=== PATIENT | female | born 1945 | race Caucasian/White ===

== ENCOUNTER 2020-06-24 17:50 | Inpatient (IN) | payer MEDICARE, MEDICAID, SELFPAY ==
--- NOTE | 2020-06-24 | XR_ITS ---
EXAMINATION: XR WRIST, LEFT CLINICAL INFORMATION: Fracture COMPARISON: None TECHNIQUE: PA, lateral, and oblique views of the left wrist. FINDINGS: Transverse oriented slightly impacted distal radial metaphyseal fracture seen. I do not appreciate any definitive intra-articular extension on these images. Minimally displaced ulnar styloid fracture noted as well. Degenerative changes in the carpal bones but no additional acute bony abnormality seen within the visualized portion of the hand. Diffuse soft tissue swelling about the wrist. XR/XR wrist LT min 3V IMPRESSION: Impacted distal radial metaphyseal fracture with slight distal dorsal angulation. Minimally displaced ulnar styloid fracture as well.
[2020-06-24 17:56] VITALS: BP 124/65; PULSE 73; RESP 16; TEMP 36.6; O2SAT 94; BMI 24.1
[2020-06-24 18:01] LABS: Glucose, Whole Blood 116 mg/dL (60-115)
--- NOTE | 2020-06-24 18:30 | ECG_ITS ---
Test Reason : FALL Blood Pressure : / mmHG Vent. Rate : 074 BPM Atrial Rate : 074 BPM P-R Int : 138 ms QRS Dur : 102 ms QT Int : 412 ms P-R-T Axes : 075 005 071 degrees QTc Int : 457 ms Sinus rhythm with occasional Premature ventricular complexes Nonspecific ST abnormality Abnormal ECG No previous ECGs available Referred By: Nito Arce Electronically Signed By:KATELIN PAULINO
[2020-06-24 18:47] VITALS: BP 128/58; PULSE 75; RESP 20; TEMP 36.8; O2SAT 96
[2020-06-24 18:51] LABS: Basophils Percent Auto 0.1 % (0-2); Eosinophils Percent Auto 0.1 % (0-4); Imm Gran Abs Auto 0.05 X10*3/uL (0.00-0.03); MANUAL DIFF FLAG SCAN; Mean Corpuscular Volume 86.5 fL (80-98); SCAN SMEAR FLAG 1
[2020-06-24] MEDS: Magnesium Sulfate/H2O 2 GM/50 ML PIGGYBACK IV (18:53)
[2020-06-24] MEDS: methylPREDNISolone Sod Succ/PF 125 MG/2 ML VIAL IVPUSH (18:53)
[2020-06-24] MEDS: 0.9 % Sodium Chloride 1,000 ML 999 ML IV (18:54)
[2020-06-24 18:55] LABS: Hematocrit 39.6 % (37-47); Hemoglobin 13.1 g/dl (12.0-16.0); Imm Gran Pct Auto 0.6 % (0.0-0.4); Lymphocytes Absolute Auto 1.7 X10*3/uL (1.2-4.9); Lymphocytes Percent Auto 22.2 % (20-40); Mean Corpuscular HGB Conc 33.1 g/dl (31.0-35.0); Mean Corpuscular Hemoglobin 28.6 pg (27.0-33.0); Mean Platelet Volume 9.9 fL (9.4-12.3); Monocytes Percent Auto 12.3 % (2-11); Neutrophils Percent Auto 64.7 % (45-73); Platelet Count 277 X10*3/uL (160-400); Red Blood Count 4.58 X10*6/uL (4.20-5.50); Red Cell Distribution Width 13.3 % (11.0-16.0); White Blood Count 7.7 X10*3/uL (4.8-10.8)
--- NOTE | 2020-06-24 18:55 | ED.FALL ---
HPI - Fall General Chief Complaint: Fall Stated Complaint: WRIST/HIP PAIN S/P FALL ON WEDNESDAY Time Seen by Provider: 06/24/20 18:11 Source: patient Mode of arrival: ambulatory Limitations: no limitations History of Present Illness HPI Narrative: Patient presents to the ED for evaluation after fall. Patient states she felt dizzy then fell 2 days ago. Patient admits to loss of consciousness. Patient states complaining of left wrist pain. Patient states she did have left hip pain but now is better. Patient does states left flank pain also. As per EMS patient is not compliant with her medications. Patient O2 saturation on ambulance was 87%. Patient states she has history of COPD but is not on any oxygen. MD complaint: fall Related Data Home Medications Medication Instructions Recorded Confirmed albuterol sulfate [Ventolin HFA] 1 inh INHALATION QID PRN 06/24/20 06/24/20 budesonide-formoterol [Symbicort] 2 puff INHALATION BID 06/24/20 06/24/20 metformin 1 tab PO BID 06/24/20 06/24/20 Allergies Allergy/AdvReac Type Severity Reaction Status Date / Time No Known Allergies Allergy Verified 06/24/20 18:03 Review of Systems Review of Systems: Yes all other systems are reviewed and are negative Constitutional: Constitutional: Reports as per HPI and Reports no additional constitutional complaints Eyes: Eyes: Reports as per HPI and Reports no additional eye complaints ENT: Reports system reviewed and no additional complaints, except as documented and Reports as per HPI Cardiovascular: Cardiovascular: Reports as per HPI and Reports no additional cardiovascular complaints Respiratory: Respiratory: Reports as per HPI and Reports no additional respiratory complaints Gastrointestinal: Gastrointestinal: Reports as per HPI and Reports no additional gastrointestinal complaints Genitourinary: Genitourinary: Reports no additional female genitourinary complaints and Reports as per HPI Musculoskeletal: Musculoskeletal: Reports no additional musculoskeletal complaints and Reports as per HPI Comments: Left hip, left upper extremity, and left flank pain Neurologic: Reports system reviewed and no additional complaints, except as documented and Reports as per HPI Psychiatric: Psychiatric: Reports no additional psychiatric complaints and Reports as per HPI [facility] Social History Social History Alcohol intake: unknown Smoking Status: Unknown if ever smoked Use of substances other than those prescribed or required for medical reasons: Unknown Advance Directives: No Advance Directives Information Provided: No Physical Exam Vital Signs: Vital Signs: Last Vital Signs Temp 97.6 F 06/24/20 19:27 Pulse 66 06/24/20 22:12 Resp 24 H 06/24/20 22:12 BP 150/81 H 06/24/20 22:12 Pulse Ox 97 06/24/20 22:12 Body Mass Index 24.1 Const: General: cooperative, healthy appearing, comfortable, no acute distress, well developed, alert, awake and Physically active Orientation/consciousness: patient oriented x3 HENMT: Head: Yes normal to inspection, Yes No palpable skull fracture present, Yes normocephalic, Yes atraumatic, No abrasion, No Acosta's sign, No contusion, No cranial bruits, No hematoma, No laceration, No occipital foramen tenderness, No palpable skull fracture, No raccoon eyes, No scalp lesion, No scalp tenderness, No Temporal artery tenderness present and No periorbital ecchymosis Eyes: General: appearance normal, both eyes and all related structures Neck: Neck: Yes normal visual inspection, Yes full ROM, Yes no lymphadenopathy, Yes no meningeal signs, Yes trachea midline, Yes supple and No tender Chest: Chest palpation & inspection: normal inspection of the chest and normal palpation of entire chest wall Resp: Effort & Inspection: normal respiratory effort and able to speak in complete sentences Cardio: Jugular venous distension: no JVD Heart sounds: S1 normal heart sound present and S2 normal heart sound present GI: Palpation (GI): Soft to palpation, not firm, nontender, no guarding and not rigid : General: Yes CVA tenderness (Positive for left flank tenderness on palpation) Back/Spine/Pelvis: Back: CVA tenderness (Positive for left flank tenderness on palpation) Skin: Other: Ecchymosis of left wrist Neuro: General: patient oriented x3, gait normal, no meningeal signs and CN's II-XI intact bilaterally Extrem: Other: Patient has complete range of motion of lower extremities. Left arm positive for ecchymosis of left wrist. Pulses intact in left upper extremity. Psych: Appearance: grossly normal, well kempt and not disheveled Course Course Course Narrative: Patient will be sent for head CT, C-spine, chest CT, abdominal CT due to fall. Patient O2 saturation on 2 L 94%. Will do labs/medical evaluation for possible COPD exacerbation. As stated by EMS patient is not compliant with her medications. Patient lives with roommates with the same age. Patient also be swabbed for COVID Reevaluation(s) Reevaluation #1: Patient wrist x-ray show impacted radial fracture. Patient will be placed in sugar-tong. Awaiting rest of labs. Patient is sent for imaging to rule out any brain bleed, neck fracture, PE or any abdominal organ damage due to fall. Time: 19:50 Reevaluation #2: PATIENT TO BE ADMITTED FOR COPD EXACERBATION AND UTI. PATIENT ON ROOM AIR IN THE EMS HAD 86% O2 SATURATION. PATIENT STATES SHE HAS NEVER BEEN ON OXYGEN. PATIENT IN THE ED ROOM AIR WAS 86% ALSO ON ROOM AIR. PATIENT ON 2 L O2 SATURATION 97%. PATIENT'S COVID TEST CAME BACK NEGATIVE. PATIENT CHEST CTa NEGATIVE FOR PE AND REST IMAGES WERE NEGATIVE FOR ANY FRACTURES OR BLEED. Patient also has mild UTI. Time: 00:40 MDM - Fall MDM Narrative Medical decision making narrative: COPD exacerbation. Lab Data Result diagrams: 06/24/20 18:43 06/24/20 18:43 Labs: Lab Results 06/24/20 06/24/20 06/24/20 Range/Units 17:57 18:39 18:43 WBC 7.7 (4.8-10.8) X10*3/uL RBC 4.58 (4.20-5.50) X10*6/uL Hgb 13.1 (12.0-16.0) g/dl Hct 39.6 (37-47) % MCV 86.5 (80-98) fL MCH 28.6 (27.0-33.0) pg MCHC 33.1 (31.0-35.0) g/dl RDW 13.3 (11.0-16.0) % Plt Count 277 (160-400) X10*3/uL MPV 9.9 (9.4-12.3) fL Immature Gran % (Auto) 0.6 H (0.0-0.4) % Neut % (Auto) 64.7 (45-73) % Lymph % (Auto) 22.2 (20-40) % [place] % (Auto) 12.3 H (2-11) % Eos % (Auto) 0.1 (0-4) % Baso % (Auto) 0.1 (0-2) % Lymph # (Auto) 1.7 (1.2-4.9) X10*3/uL [place] # (Auto) 1.0 (0.1-1.2) X10*3/uL Eos # (Auto) 0.0 (0.0-0.4) X10*3/uL Baso # (Auto) 0.0 (0.0-0.2) X10*3/uL Abs Immat Gran (auto) 0.05 H (0.00-0.03) X10*3/uL Absolute Neuts (auto) 5.0 (2.0-8.3) X10*3/uL Absolute Nucleated RBC 0.000 (0.0-0.012) X10*3/uL Nucleated RBC % (auto) 0.0 (0.0-0.2) /100WBC Smear Tech's Comments VERIFIED PT (10.8-13.0) SEC INR (0.9-1.1) APTT (24.1-38.0) SEC Sodium (135-145) mmol/L Potassium (3.3-5.1) mmol/l Chloride (96-108) mmol/L Carbon Dioxide (22-29) mmol/L Anion Gap (12-20) BUN (9-16) mg/dL Creatinine (0.5-1.4) mg/dL Estim Creat Clear Calc Estimated GFR POC Glucose 116 H (60-115) mg/dL Random Glucose (60-115) mg/dL Lactic Acid (0.5-2.0) mmol/L Calcium (8.4-10.2) mg/dL Total Bilirubin (0.0-1.0) mg/dL AST (5-31) U/L ALT (0-31) U/L Alkaline Phosphatase (39-117) U/L Troponin I High Sens (<3.5-17.0) ng/L Total Protein (6.5-8.0) g/dL Albumin (3.5-5.0) g/dL Urine Color Urine Appearance Urine pH (5.0-8.0) Ur Specific [place] (1.005-1.025) Urine Protein (NEG-TRACE) MG/DL Urine Glucose (UA) (NEG) MG/DL Urine Ketones (NEG) MG/DL Urine Blood (NEG) Urine Nitrite (NEG) Ur Leukocyte Esterase (NEG) Urine RBC (0) /HPF Urine WBC (0-4) /HPF Ur Squamous Epith Cells /LPF Urine Bacteria /LPF Urine Mucus /LPF Coronavirus (PCR) NEGATIVE (Negative) Influenza Type A (PCR) NEGATIVE (Negative) Influenza Type B (PCR) NEGATIVE (Negative) RSV RNA Qual (PCR) NEGATIVE (Negative) 06/24/20 06/24/20 06/24/20 Range/Units 18:43 18:43 18:43 WBC (4.8-10.8) X10*3/uL RBC (4.20-5.50) X10*6/uL Hgb (12.0-16.0) g/dl Hct (37-47) % MCV (80-98) fL MCH (27.0-33.0) pg MCHC (31.0-35.0) g/dl RDW (11.0-16.0) % Plt Count (160-400) X10*3/uL MPV (9.4-12.3) fL Immature Gran % (Auto) (0.0-0.4) % Neut % (Auto) (45-73) % Lymph % (Auto) (20-40) % [place] % (Auto) (2-11) % Eos % (Auto) (0-4) % Baso % (Auto) (0-2) % Lymph # (Auto) (1.2-4.9) X10*3/uL [place] # (Auto) (0.1-1.2) X10*3/uL Eos # (Auto) (0.0-0.4) X10*3/uL Baso # (Auto) (0.0-0.2) X10*3/uL Abs Immat Gran (auto) (0.00-0.03) X10*3/uL Absolute Neuts (auto) (2.0-8.3) X10*3/uL Absolute Nucleated RBC (0.0-0.012) X10*3/uL Nucleated RBC % (auto) (0.0-0.2) /100WBC Smear Tech's Comments PT 14.3 H (10.8-13.0) SEC INR 1.2 H (0.9-1.1) APTT 29.9 (24.1-38.0) SEC Sodium 136 (135-145) mmol/L Potassium 3.8 (3.3-5.1) mmol/l Chloride 99 (96-108) mmol/L Carbon Dioxide 23 (22-29) mmol/L Anion Gap 18 (12-20) BUN 12 (9-16) mg/dL Creatinine 0.76 (0.5-1.4) mg/dL Estim Creat Clear Calc 51.5 Estimated GFR > 60 POC Glucose (60-115) mg/dL Random Glucose 115 (60-115) mg/dL Lactic Acid (0.5-2.0) mmol/L Calcium 8.4 (8.4-10.2) mg/dL Total Bilirubin 0.6 (0.0-1.0) mg/dL AST 25 (5-31) U/L ALT 10 (0-31) U/L Alkaline Phosphatase 75 (39-117) U/L Troponin I High Sens 45.7 H (<3.5-17.0) ng/L Total Protein 6.8 (6.5-8.0) g/dL Albumin 3.6 (3.5-5.0) g/dL Urine Color Urine Appearance Urine pH (5.0-8.0) Ur Specific [place] (1.005-1.025) Urine Protein (NEG-TRACE) MG/DL Urine Glucose (UA) (NEG) MG/DL Urine Ketones (NEG) MG/DL Urine Blood (NEG) Urine Nitrite (NEG) Ur Leukocyte Esterase (NEG) Urine RBC (0) /HPF Urine WBC (0-4) /HPF Ur Squamous Epith Cells /LPF Urine Bacteria /LPF Urine Mucus /LPF Coronavirus (PCR) (Negative) Influenza Type A (PCR) (Negative) Influenza Type B (PCR) (Negative) RSV RNA Qual (PCR) (Negative) 06/24/20 06/24/20 06/24/20 Range/Units 19:20 22:18 22:18 WBC (4.8-10.8) X10*3/uL RBC (4.20-5.50) X10*6/uL Hgb (12.0-16.0) g/dl Hct (37-47) % MCV (80-98) fL MCH (27.0-33.0) pg MCHC (31.0-35.0) g/dl RDW (11.0-16.0) % Plt Count (160-400) X10*3/uL MPV (9.4-12.3) fL Immature Gran % (Auto) (0.0-0.4) % Neut % (Auto) (45-73) % Lymph % (Auto) (20-40) % [place] % (Auto) (2-11) % Eos % (Auto) (0-4) % Baso % (Auto) (0-2) % Lymph # (Auto) (1.2-4.9) X10*3/uL [place] # (Auto) (0.1-1.2) X10*3/uL Eos # (Auto) (0.0-0.4) X10*3/uL Baso # (Auto) (0.0-0.2) X10*3/uL Abs Immat Gran (auto) (0.00-0.03) X10*3/uL Absolute Neuts (auto) (2.0-8.3) X10*3/uL Absolute Nucleated RBC (0.0-0.012) X10*3/uL Nucleated RBC % (auto) (0.0-0.2) /100WBC Smear Tech's Comments PT (10.8-13.0) SEC INR (0.9-1.1) APTT (24.1-38.0) SEC Sodium (135-145) mmol/L Potassium (3.3-5.1) mmol/l Chloride (96-108) mmol/L Carbon Dioxide (22-29) mmol/L Anion Gap (12-20) BUN (9-16) mg/dL Creatinine (0.5-1.4) mg/dL Estim Creat Clear Calc Estimated GFR POC Glucose (60-115) mg/dL Random Glucose (60-115) mg/dL Lactic Acid 0.9 (0.5-2.0) mmol/L Calcium (8.4-10.2) mg/dL Total Bilirubin (0.0-1.0) mg/dL AST (5-31) U/L ALT (0-31) U/L Alkaline Phosphatase (39-117) U/L Troponin I High Sens 50.4 H (<3.5-17.0) ng/L Total Protein (6.5-8.0) g/dL Albumin (3.5-5.0) g/dL Urine Color YELLOW Urine Appearance HAZY Urine pH 6.0 (5.0-8.0) Ur Specific [place] 1.010 (1.005-1.025) Urine Protein NEG (NEG-TRACE) MG/DL Urine Glucose (UA) NEG (NEG) MG/DL Urine Ketones 40 (NEG) MG/DL Urine Blood TRACE (NEG) Urine Nitrite POS H (NEG) Ur Leukocyte Esterase NEG (NEG) Urine RBC 1-4 (0) /HPF Urine WBC 1-4 (0-4) /HPF Ur Squamous Epith Cells 1+ /LPF Urine Bacteria 3+ /LPF Urine Mucus 1+ /LPF Coronavirus (PCR) (Negative) Influenza Type A (PCR) (Negative) Influenza Type B (PCR) (Negative) RSV RNA Qual (PCR) (Negative) ECG Data Interpretation: Sinus rhythm with PVC. Ventricular rate 74. LA interval 138. QRS 102. Negative STEMI Discharge Plan Discharge Clinical Impression: Chronic obstructive pulmonary disease with (acute) exacerbation, Acute UTI Patient Disposition: Admitted As Inpatient
[2020-06-24 18:59] LABS: INTERNATIONAL NORM RATIO 1.2 (0.9-1.1); Prothrombin Time 14.3 SEC (10.8-13.0)
[2020-06-24] MEDS: Albuterol Sulfate 90 MCG 8 GM INHALER 4 PUFF INHALE (18:59)
[2020-06-24 19:00] VITALS: PULSE 70; O2SAT 94
[2020-06-24 19:02] LABS: Partial Thromboplastin Time 29.9 SEC (24.1-38.0)
[2020-06-24 19:11] LABS: SLIDE REVIEW VERIFIED
[2020-06-24 19:19] LABS: Alanine Aminotransferase 10 U/L (0-31); Albumin Level 3.6 g/dL (3.5-5.0); Alkaline Phosphatase 75 U/L (39-117); Anion Gap 18 (12-20); Aspartate Amino Transferase 25 U/L (5-31); Bilirubin Total 0.6 mg/dL (0.0-1.0); Blood Urea Nitrogen 12 mg/dL (9-16); Calcium 8.4 mg/dL (8.4-10.2); Carbon Dioxide 23 mmol/L (22-29); Chloride 99 mmol/L (96-108); Creatinine Clr Calc Pharmacy 51.5; Estimated Glomerular Filt Rate > 60; Glucose Random 115 mg/dL (60-115); Potassium 3.8 mmol/l (3.3-5.1); Sodium 136 mmol/L (135-145); Total Protein 6.8 g/dL (6.5-8.0)
--- NOTE | 2020-06-24 19:26 | CT_ITS ---
EXAMINATION: CT ANGIOGRAM OF THE CHEST WITH AND WITHOUT CONTRAST (CT PULMONARY ANGIOGRAM FOR PE) CLINICAL INFORMATION: Reason for Exam fall. dizzy and hypoxic. fractures? PE? COMPARISON: None TECHNIQUE: Prior to contrast administration, noncontrast localization images were obtained. Subsequently, multidetector volumetric imaging was performed from the thoracic inlet to below the diaphragms following the administration of 80 mL Omnipaque 350 intravenous contrast. No contrast reaction reported Sagittal, coronal, and MIP oblique sagittal reformatted images were obtained on the CT workstation, uploaded to PACS, and reviewed. This CT examination was performed using dose optimization techniques as appropriate, variously including the following: *Automated exposure control *Adjustment of mA and/or kV according to patient size (this includes techniques or standardized protocols for targeted exams where dose is matched to indication/reason for exam; i.e. extremities or head) *Use of iterative reconstruction technique Total exam dose-length product 543 mGy-cm FINDINGS: QUALITY OF STUDY/CONTRAST BOLUS: Satisfactory. PULMONARY ARTERIES: No central or segmental pulmonary emboli. THORACIC AORTA: No aneurysm or dissection. LUNG: Severe emphysematous changes are present throughout the lungs most marked in the upper lobes. Bronchial wall thickening is noted in both lower lobes with some calcifications seen around the bronchial schaeffer especially in the right lower lobe (for example see series 31 image 253). A right lower lobe calcified granuloma is present. Bilateral lower lobe scarring/atelectasis is seen. PLEURA: No pleural effusion or pneumothorax. MEDIASTINUM: Normal heart size. No pericardial effusion. No hilar or mediastinal lymphadenopathy. No evidence of septal bowing or right heart strain. Disease is noted at the origin of the left subclavian as well as the left vertebral artery which may have stenoses. CHEST WALL/AXILLA: No axillary or internal mammary lymphadenopathy. OSSEOUS STRUCTURES: No acute or suspicious osseous abnormality. UPPER ABDOMEN: Unremarkable. No reflux of contrast into the hepatic veins to suggest elevated right heart pressures. CT/CT angio chest PE protocol IMPRESSION: 1. No evidence of pulmonary emboli 2. Severe emphysematous changes throughout both lungs. 3. Bronchial wall thickening lower lobes with some bronchial wall calcification and associated bilateral lower lobe scarring/atelectasis. 4. Atherosclerotic changes as described above with possible left vertebral and left subclavian stenosis. VTE: negative
--- NOTE | 2020-06-24 19:26 | CT_ITS ---
EXAMINATION: CT ABDOMEN AND PELVIS WITH CONTRAST CLINICAL INFORMATION: Fall with question of organ injury or fracture COMPARISON: None TECHNIQUE: Multidetector volumetric images were obtained from the superior aspect of the liver through the pubic symphysis following administration 85 mL of Omnipaque 350 intravenous contrast. Sagittal and coronal reformatted images were obtained on the technologist's workstation. Oral contrast: No This CT examination was performed using dose optimization techniques as appropriate, variously including the following: *Automated exposure control *Adjustment of mA and/or kV according to patient size (this includes techniques or standardized protocols for targeted exams where dose is matched to indication/reason for exam; i.e. extremities or head) *Use of iterative reconstruction technique DLP: 543 mGy-cm FINDINGS: LIVER, GALLBLADDER, AND BILIARY TREE: The liver is normal in size, shape, and attenuation. No focal hepatic lesion or biliary ductal dilatation is present. The gallbladder is unremarkable with no evidence of radiopaque gallstones, gallbladder wall thickening, or obvious pericholecystic inflammatory changes. PANCREAS: Unremarkable. SPLEEN: A subcapsular hyperattenuating mass is present arising from the superior spleen measuring 3.6 cm. ADRENAL GLANDS: Unremarkable. KIDNEYS AND URETERS: The kidneys are normal in size, shape, and attenuation. There is mild prominence of the right renal collecting system and radiograph right aorta down to a level where it passes in front of the distal common iliac artery. There is no delay in nephrogram. No renal masses are seen. No hydronephrosis, hydroureter, or calculi seen. No perinephric stranding. BLADDER: Unremarkable. GASTROINTESTINAL TRACT: The small and large bowel are unremarkable. There is fatty infiltration of the ileocecal valve. The appendix is unremarkable. ABDOMINAL WALL: No significant hernia is appreciated. LYMPH NODES: No retroperitoneal lymphadenopathy is seen. Small left para-aortic lymph node is seen at the level of the renal farshad. VASCULAR: Atherosclerotic changes present in the aorta and iliofemoral vessels. There is some mild infrarenal aortic ectasia measuring 2.5 cm. 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 PELVIC VISCERA: Status post hysterectomy OSSEOUS STRUCTURES: Degenerative changes present in the spine most marked at L4-L5 and L5-S1. There is grade 1 anterolisthesis of L4 upon L5 and to a lesser extent at L3 upon L4. No hip or pelvic fractures are seen on the included images. CT/CT abdomen pelvis w con IMPRESSION: 1. No evidence of visceral organ injury or fracture. 2. Incidental findings described above including mild fullness of the renal collecting system, atherosclerotic changes in the aorta, its branches and iliofemoral vessels. 3. Hysterectomy 4. Degenerative changes in the spine with anterolisthesis at L3-L4 and L4-L5 5. Splenic mass. If needed, further evaluation could be performed with MRI. If older studies are available for comparison, this could be helpful.
--- NOTE | 2020-06-24 19:26 | CT_ITS ---
EXAMINATION: CT HEAD WITHOUT CONTRAST CT CERVICAL SPINE WITHOUT CONTRAST CLINICAL INFORMATION: Fall COMPARISON: None. TECHNIQUE: Imaging was performed from the skull base to vertex without intravenous administration of contrast. In addition, helical noncontrast CT imaging was acquired through the cervical spine and source images were reviewed along with axial reconstructions and sagittal and coronal MPRs. [This CT examination was performed using dose optimization techniques as appropriate, variously including the following: *Automated exposure control *Adjustment of mA and/or kV according to patient size (this includes techniques or standardized protocols for targeted exams where dose is matched to indication/reason for exam; i.e. extremities or head) *Use of iterative reconstruction technique] DLP: 10.25+646.55+262.64 mGy-cm FINDINGS: HEAD: No intracranial mass, hemorrhage, or midline shift is visualized. There is atrophy with prominence of the ventricles and the sulci and hypodensity of the periventricular white matter due to chronic small vessel ischemic disease. There are vascular calcifications of the internal carotid arteries bilaterally. . No extra-axial collections are identified. The paranasal sinuses and mastoid air cells are well aerated. CERVICAL SPINE: There is no evidence of acute cervical spine fracture. Vertebral bodies remain normal in height. Cervical vertebrae have normal alignment. There is multilevel degenerative spondylosis of the cervical spine with disc height narrowing and endplate spurs and facet joint arthrosis No prevertebral soft tissue swelling. There are vascular calcification of the carotid arteries in the soft tissues of the neck bilateral. Mild centrilobular emphysematous change of lung apices. There is advanced degenerative change of the right TMJ joint. Joint space is narrowed. Prominent subchondral sclerosis and marginal bone spurs. There are intra-articular calcified loose bodies CT/CT cervical spine wo con IMPRESSION: 1. No acute intracranial pathology. 2. No CT evidence of acute cervical spine fracture or traumatic subluxation
[2020-06-24 19:27] VITALS: BP 139/53; PULSE 81; RESP 15; TEMP 36.4; O2SAT 96
[2020-06-24 19:34] LABS: Troponin-I High Sensitivity 45.7 ng/L (<3.5-17.0)
[2020-06-24 19:50] LABS: Lactic Acid 0.9 mmol/L (0.5-2.0)
[2020-06-24 20:00] VITALS: BP 123/58; PULSE 70; RESP 24; O2SAT 98
[2020-06-24 20:00] LABS: Influenza A PCR NEGATIVE (Negative); Influenza B PCR NEGATIVE (Negative); Resp Syncy Virus RNA Qual PCR NEGATIVE (Negative); SARS COV2 PCR INHOUSE NEGATIVE (Negative)
[2020-06-24] MEDS: iohexoL 350 MG/ML 100 ML INFUS..BTL IV (21:40)
[2020-06-24 22:12] VITALS: BP 150/81; PULSE 66; RESP 24; O2SAT 97
[2020-06-24 22:31] LABS: Glucose Urine UA NEG (NEG); Leukocyte Esterase Urine NEG (NEG); Nitrite Urine POS (NEG); Urine Blood TRACE (NEG); Urine Ketones 40 MG/DL (NEG); Urine Protein NEG (NEG-TRACE)
[2020-06-24 22:46] LABS: Appearance Urine HAZY; Color Urine YELLOW
[2020-06-24 22:47] LABS: Bacteria Urine 3+ /LPF; Mucus Urine 1+ /LPF; Squamous Epithelial Cell Urine 1+ /LPF
[2020-06-24 23:02] LABS: Troponin-I High Sensitivity 50.4 ng/L (<3.5-17.0)
[2020-06-24] MEDS: cefTRIAXone sodium 1 GM in 0.9 % Sodium Chloride 50 ML IV (23:54)
[2020-06-25] VITALS (12 sets, daily range): BP systolic 115–156; BP diastolic 60–86; PULSE 58–76; RESP 16–28; TEMP 36.4; O2SAT 93–99
[2020-06-25] MEDS: Azithromycin 500 MG in 0.9 % Sodium Chloride 250 ML 125 MG IV (00:45)
[2020-06-25] MEDS: Albuterol/Iprat 2.5/0.5MG 3 ML AMPUL.NEB INHALE ×4 (07:35→20:41)
--- NOTE | 2020-06-25 07:52 | P.HPHOSP_ITS ---
History of Present Illness Date of Service: 06/25/20 Chief Complaint: Fall This is a 75-year-old female with past medical history of diabetes, COPD who presents to the hospital with complaints of fall and hurting her his. Patient has been feeling weak for the past 1 week. Low appetite. She is also complaining of urinary urgency with no dysuria or frequency. Patient is also complaining of increased cough and sputum production with no wheezing. She does not remember much about her fall, she reports that she fell and could not stop herself from falling and rolling. She hurt her wrist and also her left hip. She does not remember if she lost consciousness or not and does not remember any prodromal symptoms. She just remembers being in feeling significantly weak. She otherwise denies headache, change in vision, no nausea or vomiting, no abdominal pain, no suprapubic pain, no lower extremity edema. Apparently patient is satting 86% with ambulation in the ED and also noted by EMS. Currently on 2 L satting 95 sit to 99%. Recorded vitals are significant for tachypnea, but currently breathing comfortably Labs are significant for normal WBC count of 7.7, hemoglobin of 13.1, PT of 14.3, INR of 1.2, sodium of 136, potassium 3.8, high sensitivity troponin of 45 increased to 50.4, UA positive for nitrites, negative COVID-19. CT angiogram of the chest is negative for PE, severe emphysematous changes throughout the lungs. PMHX: COPD, diabetes Past surgical history: Denies Family history: Denies Social history: Comes from home, denies tobacco alcohol or illicit drugs Review of Systems Review of Systems: Yes all other systems are reviewed and are negative Neurologic: Reports system reviewed and no additional complaints, except as documented and Reports as per [facility] Medical History (Updated 06/25/20 @ 08:06 by Aurelio Champion MD) COPD (chronic obstructive pulmonary disease) Diabetes Social History Alcohol intake: unknown Smoking Status: Unknown if ever smoked Use of substances other than those prescribed or required for medical reasons: Unknown Advance Directives: No Advance Directives Information Provided: No Meds Allergies Allergy/AdvReac Type Severity Reaction Status Date / Time No Known Allergies Allergy Verified 06/24/20 18:03 Home Medications Medication Instructions Recorded Confirmed Type albuterol sulfate [Ventolin HFA] 1 inh INHALATION QID PRN 06/24/20 06/24/20 History budesonide-formoterol [Symbicort] 2 puff INHALATION BID 06/24/20 06/24/20 History metformin 1 tab PO BID 06/24/20 06/24/20 History Physical Exam Vital Signs and Narrative: Vital Signs: Last Vital Signs Temp 97.6 F 06/24/20 19:27 Pulse 66 06/25/20 07:37 Resp 16 06/25/20 06:00 BP 144/65 H 06/25/20 06:00 Pulse Ox 99 06/25/20 06:00 Body Mass Index 24.1 Const: General: cooperative and no acute distress Orientation /consciousness: patient oriented x3 Eyes: General: appearance normal, both eyes and all related structures Resp: Effort & Inspection: normal respiratory effort and able to speak in complete sentences Cardio: Rate: regular rate Rhythm: regular rhythm GI: Palpation (GI): Soft to palpation Auscultation: normal bowel sounds Skin: General skin exam: no rashes or lesions noted Neuro: General: patient oriented x3 Cognition (Neuro): normal cognition Extrem: General: Yes normal to inspection and Yes no pedal edema Results Labs CBC and Chem 7: 06/24/20 18:43 06/24/20 18:43 Labs: Laboratory Results - last 24 hr 06/24/20 06/24/20 06/24/20 17:57 18:39 18:43 MCV 86.5 MCH 28.6 MCHC 33.1 RDW 13.3 Plt Count 277 MPV 9.9 Immature Gran % (Auto) 0.6 H Neut % (Auto) 64.7 Lymph % (Auto) 22.2 Jefferson % (Auto) 12.3 H Eos % (Auto) 0.1 Baso % (Auto) 0.1 Lymph # (Auto) 1.7 Jefferson # (Auto) 1.0 Eos # (Auto) 0.0 Baso # (Auto) 0.0 Abs Immat Gran (auto) 0.05 H Absolute Neuts (auto) 5.0 Absolute Nucleated RBC 0.000 Nucleated RBC % (auto) 0.0 Smear Tech's Comments VERIFIED PT INR APTT Anion Gap Estim Creat Clear Calc Estimated GFR POC Glucose 116 H Random Glucose Lactic Acid Calcium Total Bilirubin AST ALT Alkaline Phosphatase Troponin I High Sens Total Protein Albumin Urine Color Urine Appearance Urine pH Ur Specific [place] Urine Protein Urine Glucose (UA) Urine Ketones Urine Blood Urine Nitrite Ur Leukocyte Esterase Urine RBC Urine WBC Ur Squamous Epith Cells Urine Bacteria Urine Mucus Coronavirus (PCR) NEGATIVE Influenza Type A (PCR) NEGATIVE Influenza Type B (PCR) NEGATIVE RSV RNA Qual (PCR) NEGATIVE 06/24/20 06/24/20 06/24/20 18:43 18:43 18:43 MCV MCH MCHC RDW Plt Count MPV Immature Gran % (Auto) Neut % (Auto) Lymph % (Auto) Jefferson % (Auto) Eos % (Auto) Baso % (Auto) Lymph # (Auto) Jefferson # (Auto) Eos # (Auto) Baso # (Auto) Abs Immat Gran (auto) Absolute Neuts (auto) Absolute Nucleated RBC Nucleated RBC % (auto) Smear Tech's Comments PT 14.3 H INR 1.2 H APTT 29.9 Anion Gap 18 Estim Creat Clear Calc 51.5 Estimated GFR > 60 POC Glucose Random Glucose 115 Lactic Acid Calcium 8.4 Total Bilirubin 0.6 AST 25 ALT 10 Alkaline Phosphatase 75 Troponin I High Sens 45.7 H Total Protein 6.8 Albumin 3.6 Urine Color Urine Appearance Urine pH Ur Specific [place] Urine Protein Urine Glucose (UA) Urine Ketones Urine Blood Urine Nitrite Ur Leukocyte Esterase Urine RBC Urine WBC Ur Squamous Epith Cells Urine Bacteria Urine Mucus Coronavirus (PCR) Influenza Type A (PCR) Influenza Type B (PCR) RSV RNA Qual (PCR) 06/24/20 06/24/20 06/24/20 19:20 22:18 22:18 MCV MCH MCHC RDW Plt Count MPV Immature Gran % (Auto) Neut % (Auto) Lymph % (Auto) Jefferson % (Auto) Eos % (Auto) Baso % (Auto) Lymph # (Auto) Jefferson # (Auto) Eos # (Auto) Baso # (Auto) Abs Immat Gran (auto) Absolute Neuts (auto) Absolute Nucleated RBC Nucleated RBC % (auto) Smear Tech's Comments PT INR APTT Anion Gap Estim Creat Clear Calc Estimated GFR POC Glucose Random Glucose Lactic Acid 0.9 Calcium Total Bilirubin AST ALT Alkaline Phosphatase Troponin I High Sens 50.4 H Total Protein Albumin Urine Color YELLOW Urine Appearance HAZY Urine pH 6.0 Ur Specific [place] 1.010 Urine Protein NEG Urine Glucose (UA) NEG Urine Ketones 40 Urine Blood TRACE Urine Nitrite POS H Ur Leukocyte Esterase NEG Urine RBC 1-4 Urine WBC 1-4 Ur Squamous Epith Cells 1+ Urine Bacteria 3+ Urine Mucus 1+ Coronavirus (PCR) Influenza Type A (PCR) Influenza Type B (PCR) RSV RNA Qual (PCR) Imaging Radiologist's Impressions: Impressions Wrist X-Ray 06/24/20 00:00 IMPRESSION: Impacted distal radial metaphyseal fracture with slight distal dorsal angulation. Minimally displaced ulnar styloid fracture as well. Abdomen/Pelvis CT 06/24/20 19:26 IMPRESSION: 1. No evidence of visceral organ injury or fracture. 2. Incidental findings described above including mild fullness of the renal collecting system, atherosclerotic changes in the aorta, its branches and iliofemoral vessels. 3. Hysterectomy 4. Degenerative changes in the spine with anterolisthesis at L3-L4 and L4-L5 5. Splenic mass. If needed, further evaluation could be performed with MRI. If older studies are available for comparison, this could be helpful. Cervical Spine CT 06/24/20 19:26 IMPRESSION: 1. No acute intracranial pathology. 2. No CT evidence of acute cervical spine fracture or traumatic subluxation Chest CTA 06/24/20 19:26 IMPRESSION: 1. No evidence of pulmonary emboli 2. Severe emphysematous changes throughout both lungs. 3. Bronchial wall thickening lower lobes with some bronchial wall calcification and associated bilateral lower lobe scarring/atelectasis. 4. Atherosclerotic changes as described above with possible left vertebral and left subclavian stenosis. VTE: negative Head CT 06/24/20 19:26 IMPRESSION: 1. No acute intracranial pathology. 2. No CT evidence of acute cervical spine fracture or traumatic subluxation Assessment and Plan (1) Chronic obstructive pulmonary disease with (acute) exacerbation: Status: Acute (2) Acute UTI: Status: Acute (3) Falls: Qualifiers: Encounter type: initial encounter Qualified Code(s): W19.XXXA - Unspecified fall, initial encounter Status: Acute (4) Acute and chronic respiratory failure with hypoxia: Status: Acute 75-year-old female with past medical history of COPD who presents to the hospital with complaints of falls found to have UTI as well as hypoxic on ambulation # acute hypoxic respiratory failure - secondary to COPD exacerbation - has no evidence of pneumonia, COVID-19 PCR negative - reported to have dropped to 86% on ambulation per EMS as well as ED Plan: -will start on Solu-Medrol 40 IV b.i.d. - DuoNeb q.i.d. scheduled and p.r.n. for shortness of breath/wheezing - monitor respiratory status # UTI - has urgency, nitrates and UA - no evidence of sepsis, has no leukocytosis, afebrile Plan: - will start on ceftriaxone - follow urine cultures # Falls - possibly secondary to weakness, no acute UTI - patient reports poor oral intake for 1 week - will start treating her UTI - consult physical therapy for evaluation DVT prophylaxis: Lovenox
[2020-06-25] MEDS: Enoxaparin Sodium 40 MG/0.4 ML SYRINGE SUBCUT (08:46)
[2020-06-25 08:53] LABS: Glucose, Whole Blood 172 mg/dL (60-115)
[2020-06-25] MEDS: Insulin Lispro 100 UNIT/ML 3 ML VIAL SUBCUT ×2 (08:53→20:36)
--- NOTE | 2020-06-25 11:19 | MHC.CM.PN ---
Met with patient in regards to discharge planning. Patient lives with her sig other, Jg, has a cane for mobility and receives housekeeping services twice a week. PCP verified. Obs notice explained and signed. Physical therapy eval complete. Acute rehab is recommended. Occupational therapy eval is pending. Spoke about rehab options with patient. Patient is denying the need for rehab and wants to go home. Patient states sig other, Jg will be able to help her with all of her ADL's. Spoke with patient's son, Abdi via telephone at [phone]. Patient moved from [place] to [facility] about 3 years ago. Abdi will provide a copy of patient's POA to t/w via fax. Abdi is concerned about patient going home and not to rehab. Reached out to patient's sig other, Jg via telephone at [phone]. Left message requesting return telephone call. Continue to monitor for d/c needs.
[2020-06-25 12:54] LABS: Glucose, Whole Blood 174 mg/dL (60-115)
--- NOTE | 2020-06-25 14:05 | PC.NURSE ---
PT WAS PROVIDED LUNCH TRAY, ASSISTED IN SETTING HER UP ADJUSTED HER SLING LYNNETTE WICK SUCTION CONTAINER EMPTIED OF 400ML URINE
--- NOTE | 2020-06-25 14:31 | MHC.CM.PN ---
Copy of HCP was provided via fax from patient's son Abdi. Received telephone call from patient's sig other, Jg. He is unable to assist the patient at home. He just got out of the hospital himself. Anticipate patient will need rehab. [facility] is waiting for OT eval so they can obtain insurance auth. Continue to monitor for d/c needs.
[2020-06-25 18:11] LABS: Glucose, Whole Blood 169 mg/dL (60-115)
[2020-06-25 20:28] LABS: Glucose, Whole Blood 219 mg/dL (60-115)
[2020-06-25] MEDS: cefTRIAXone sodium 1 GM in 0.9 % Sodium Chloride 50 ML IV (20:35)
[2020-06-26] VITALS (8 sets, daily range): BP systolic 124–148; BP diastolic 65–72; PULSE 66–79; RESP 16–28; TEMP 36.4–36.9; O2SAT 91–94
[2020-06-26 05:23] LABS: Basophils Percent Auto 0.1 % (0-2); Hematocrit 35.9 % (37-47); Imm Gran Abs Auto 0.06 X10*3/uL (0.00-0.03); Imm Gran Pct Auto 0.6 % (0.0-0.4); Lymphocytes Absolute Auto 1.8 X10*3/uL (1.2-4.9); Lymphocytes Percent Auto 16.6 % (20-40); MANUAL DIFF FLAG SCAN; Mean Corpuscular HGB Conc 33.4 g/dl (31.0-35.0); Mean Corpuscular Hemoglobin 28.6 pg (27.0-33.0); Mean Corpuscular Volume 85.7 fL (80-98); Monocytes Absolute Auto 1.1 X10*3/uL (0.1-1.2); Monocytes Percent Auto 10.2 % (2-11); Neutrophils Absolute Auto 7.7 X10*3/uL (2.0-8.3); Neutrophils Percent Auto 72.5 % (45-73); Platelet Count 323 X10*3/uL (160-400); Red Blood Count 4.19 X10*6/uL (4.20-5.50); Red Cell Distribution Width 13.1 % (11.0-16.0); SCAN SMEAR FLAG 1; White Blood Count 10.6 X10*3/uL (4.8-10.8)
[2020-06-26 05:43] LABS: SLIDE REVIEW VERIFIED
[2020-06-26 05:44] LABS: Anion Gap 12 (12-20); Blood Urea Nitrogen 11 mg/dL (9-16); Calcium 8.2 mg/dL (8.4-10.2); Carbon Dioxide 27 mmol/L (22-29); Chloride 104 mmol/L (96-108); Creatinine Clr Calc Pharmacy 59.3; Estimated Glomerular Filt Rate > 60; Glucose Random 139 mg/dL (60-115); Potassium 3.5 mmol/l (3.3-5.1); Sodium 139 mmol/L (135-145)
[2020-06-26 06:26] LABS: Glucose, Whole Blood 120 mg/dL (60-115)
--- NOTE | 2020-06-26 06:50 | PC.NURSE ---
received report from lars bowen pt assisted out of bed with assistance into the recliner, pt was incontinent of urine, pt set up with her breakfast yanet pt given Tylenol for pain by lars Bowen pt awaiting room assignment
[2020-06-26] MEDS: Enoxaparin Sodium 40 MG/0.4 ML SYRINGE SUBCUT (06:51)
[2020-06-26] MEDS: Acetaminophen 325 MG TABLET 650 MG PO (06:53)
[2020-06-26] MEDS: Albuterol/Iprat 2.5/0.5MG 3 ML AMPUL.NEB INHALE ×3 (07:58→15:21)
--- NOTE | 2020-06-26 08:30 | PC.NURSE ---
called crys peng to give report awaiting for a call back
--- NOTE | 2020-06-26 08:52 | MHC.CM.PN ---
[facility] has submitted for insurance auth with [employer]. They are requesting repeat Covid and verification patient will not need surgery. Dr Maurer has ordered ortho consult. However, it has not been done yet. Repeat Covid has been ordered. Continue to monitor for d/c needs.
[2020-06-26] MEDS: predniSONE 20 MG TABLET 40 MG PO (09:11)
--- NOTE | 2020-06-26 09:13 | PC.NURSE ---
plan for pt to go to rehab at this time, not admission pt reports no pain at this time
--- NOTE | 2020-06-26 11:26 | PC.NURSE ---
Pt found with o2 off, her sats were 88 on room air. She was placed back on 2 liters with sats increasing to 92%. Orthopedic team at bedside to explain plan of care to pt at this time.
--- NOTE | 2020-06-26 12:00 | PM.EVENT ---
Event Note Date of Service: 06/26/20 Event Note: Patient seen today for left distal radius fracture - she would benefit from ORIF left wrist, this is not an urgent or emergent procedure, can do on an out patient basis early next week
--- NOTE | 2020-06-26 12:34 | P.PNIM_ITS ---
Subjective Subjective Date of Service: 06/26/20 Interval History: fall Cardiovascular Cardiovascular: Reports no additional cardiovascular complaints Respiratory Respiratory: Reports no additional respiratory complaints Physical Exam Vital Signs: Vital Signs: Last Vital Signs Temp 98.4 F 06/26/20 11:23 Pulse 67 06/26/20 11:36 Resp 20 06/26/20 11:23 BP 125/68 06/26/20 11:23 Pulse Ox 92 06/26/20 11:23 Body Mass Index 24.1 General: AO X 3, no acute distress Resp: CTA bilateral CVS: S1,S2,RRR GI: soft, non tender, non distended Neuro: motor grossly intact Psych: appropriate affect Objective Data Current Medications Generic Name Dose Route Start Last Admin Trade Name Freq PRN Reason Stop Dose Admin Acetaminophen 650 mg 06/25/20 06:16 06/26/20 06:53 Acetaminophen 325 Mg Tablet PO 650 mg Q6H PRN Administration Pain, Mild (Pain Scale 1-3) Albuterol/Ipratropium 3 ml 06/25/20 08:00 06/26/20 11:33 Albuterol/Iprat 2.5/0.5mg 3 Ml Ampul.Neb INHALE 3 ml RQ4H WHILE AWAKE NAYELI Administration Albuterol/Ipratropium 3 ml 06/25/20 06:16 Albuterol/Iprat 2.5/0.5mg 3 Ml Ampul.Neb INHALE RQ4H PRN Shortness of Breath/Wheezing Docusate Sodium 100 mg 06/25/20 06:16 Docusate Sodium 100 Mg Capsule PO DAILY PRN Constipation Enoxaparin Sodium 40 mg 06/25/20 06:16 06/26/20 06:51 Enoxaparin Sodium 40 Mg/0.4 Ml Syringe SUBCUT 40 mg Q24H NAYELI Administration Ceftriaxone Sodium 1 gm/ 50 mls @ 100 mls/hr 06/25/20 21:00 06/25/20 21:05 Sodium Chloride IV Infused Q24H NAYELI Infusion Insulin Human Lispro 0 unit 06/25/20 07:30 06/26/20 06:45 Insulin Lispro 100 Unit/Ml 3 Ml Vial SUBCUT Not Given QIDACHS [facility] Protocol Ondansetron HCl 4 mg 06/25/20 06:16 Ondansetron Hcl 4 Mg/2 Ml Vial IVPUSH Q8H PRN Nausea and Vomiting Prednisone 40 mg 06/26/20 09:00 06/26/20 09:11 Prednisone 20 Mg Tablet PO 40 mg DAILY NAYELI Administration Labs CBC & Chem 7: 06/26/20 05:19 06/26/20 05:19 Microbiology Microbiology Results: Microbiology 06/24/20 22:18 Urine clean catch - Clean Catch Midstream Urine Culture - Final Escherichia coli 06/24/20 19:22 Blood - Venous Blood Culture - Preliminary No growth after 24 hours. 06/24/20 19:20 Blood - Venous Blood Culture - Preliminary No growth after 24 hours. Assessment and Plan (1) Chronic obstructive pulmonary disease with (acute) exacerbation: Status: Acute (2) Acute UTI: Status: Acute (3) Falls: Status: Acute (4) Acute and chronic respiratory failure with hypoxia: Status: Acute Assessment and Plan: 75F presented with fall Acute hypoxic respiratory failure secondary to COPD exacerbation Very mild, denies any symptoms, likely has chronic low normal to hypoxic saturations at baseline Changed to p.o. prednisone Bronchodilators as needed Positive UA with pansensitive E coli Questionable symptoms Will treat with ceftriaxone, can change to amoxicillin on discharge Left wrist fracture Ortho appreciated Plan for non urgent ORIF as outpatient Will need rehab [facility]
--- NOTE | 2020-06-26 12:48 | P.CONOP_ITS ---
History of Present Illness HPI Consult date: 06/26/20 Chief complaint: COPD exacerbation Narrative: This is a 75-year-old female with past medical history significant for COPD who presented to the emergency department after sustaining a fall on June 22. When she fell she landed on her wrist. She also had a loss of consciousness. When she was brought to the emergency department she was worked up and x-rays of the left wrist showed a distal radius fracture. She was placed in a splint and Orthopedics was consulted for further recommendations. Review of Systems Neurologic: Reports system reviewed and no additional complaints, except as documented and Reports as per [facility] Past Medical History Medical History (Updated 06/26/20 @ 12:52 by Delroy Humphrey PA-C) COPD (chronic obstructive pulmonary disease) Diabetes Social History Social History Alcohol intake: unknown Smoking Status: Unknown if ever smoked Use of substances other than those prescribed or required for medical reasons: Unknown Advance Directives: No Advance Directives Information Provided: No service: No Current occupational status: retired [email or web address] Allergies Allergy/AdvReac Type Severity Reaction Status Date / Time No Known Allergies Allergy Verified 06/24/20 18:03 Home Medications Medication Instructions Recorded Confirmed Type albuterol sulfate [Ventolin HFA] 1 inh INHALATION QID PRN 06/24/20 06/24/20 History budesonide-formoterol [Symbicort] 2 puff INHALATION BID 06/24/20 06/24/20 History metformin 500 mg PO BID 06/24/20 06/26/20 History Physical Exam Vital Signs: Vital Signs: Last Vital Signs Temp 98.4 F 06/26/20 11:23 Pulse 67 06/26/20 11:36 Resp 20 06/26/20 11:23 BP 125/68 06/26/20 11:23 Pulse Ox 92 06/26/20 11:23 Body Mass Index 24.1 Const: General: cooperative and no acute distress Orientation/consciousness: patient oriented x3 Resp: Effort & Inspection: normal respiratory effort and able to speak in complete sentences Cardio: Peripheral pulses: Peripheral pulses 2+ throughout Neuro: General: patient oriented x3 Extrem: Other: Left wrist splint is intact. She has mobility of her fingers and sensation is intact. Capillary refill present. X-rays of the left wrist show a an impacted distal radius fracture with slight dorsal angulation Results Labs Result Diagrams: 06/26/20 05:19 06/26/20 05:19 Labs: Abnormal lab results 06/25/20 06/25/20 06/25/20 Range/Units 12:50 18:07 20:12 RBC (4.20-5.50) X10*6/uL Hct (37-47) % Immature Gran % (Auto) (0.0-0.4) % Lymph % (Auto) (20-40) % Abs Immat Gran (auto) (0.00-0.03) X10*3/uL POC Glucose 174 H 169 H 219 H (60-115) mg/dL Random Glucose (60-115) mg/dL Calcium (8.4-10.2) mg/dL 06/26/20 06/26/20 06/26/20 Range/Units 05:19 05:19 06:00 RBC 4.19 L (4.20-5.50) X10*6/uL Hct 35.9 L (37-47) % Immature Gran % (Auto) 0.6 H (0.0-0.4) % Lymph % (Auto) 16.6 L (20-40) % Abs Immat Gran (auto) 0.06 H (0.00-0.03) X10*3/uL POC Glucose 120 H (60-115) mg/dL Random Glucose 139 H (60-115) mg/dL Calcium 8.2 L (8.4-10.2) mg/dL H & H 06/24/20 06/26/20 Range/Units 18:43 05:19 Hgb 13.1 12.0 (12.0-16.0) g/dl Hct 39.6 35.9 L (37-47) % Coagulation 06/24/20 Range/Units 18:43 INR 1.2 H (0.9-1.1) All other labs normal. Assessment and Plan (1) Distal radius fracture, left: Status: Acute I discussed the case with Dr. Barrios and explained the extent of the injury to the patient and options available which include surigcal intervention. I explained the procedure in detail along with the length of recovery and rehab course. I explained the risk, benefits and alternatives. Risk including, but not limited to infection, blood clots, bleeding, non union or malunion and nerve/tissue damage to surrounding areas. I answered all their questions and with their understanding they have consented to move forward with Operative Fixation of the left wrist . We will book accordingly.
[2020-06-26 12:52] LABS: Glucose, Whole Blood 153 mg/dL (60-115)
--- NOTE | 2020-06-26 13:46 | PC.NURSE ---
Pt swabbed for covid. Plan to place into rehab facility once the covid swab has resulted. The pt is aware of the plan.
[2020-06-26 13:52] LABS: COVID-19 Test Negative (Negative); IDNOW Serial# 9DD0AD1C
--- NOTE | 2020-06-26 15:30 | MHC.CM.PN ---
[facility] is not able to offer a bed because patient will need to return to [facility] on Saturday 07/01 for 1045am. Referral broadcasted in [employer]. [facility] is willing to offer a bed. Patient agreeable to going to [place]. [facility] is in the process of obtaining insurance auth. Spoke with patient's sig other, Jg via telephone at [phone]. Jg verbalized understanding. Spoke with patient's son/HCP Abdi via telephone at [phone]. Abdi verbalized understanding. Continue to monitor for d/c needs.
--- NOTE | 2020-06-26 16:52 | PC.NURSE ---
Pt back in bed. POC obtained. Awaiting dinner tray arrival. Awaiting insurance company authorization at this time for transfer to rehab. Pt notified that she may likely be staying until tomorrow.
[2020-06-26 17:12] LABS: Glucose, Whole Blood 164 mg/dL (60-115)
--- NOTE | 2020-06-26 17:44 | MHC.CM.ED ---
CM met with patient regarding STR at [facility] for PT. Pt. at first confused about rehab, but upon further conversation, agreeable. Aware that [facility] has not obtained insurance authorization yet, so pt. will will remain in ED overnight. Pt aware she will have surgery on Wednesday to repair Fx distal radius and then return to rehab for PT.
[2020-06-26] MEDS: Insulin Lispro 100 UNIT/ML 3 ML VIAL SUBCUT (18:13)
[2020-06-26 22:11] LABS: Glucose, Whole Blood 146 mg/dL (60-115)
[2020-06-26] MEDS: cefTRIAXone sodium 1 GM in 0.9 % Sodium Chloride 50 ML IV (22:16)
--- NOTE | 2020-06-26 22:24 | PC.NURSE ---
Addendum entered by Gi Sr 06/26/20 22:26: IV to right forearm infiltrated and painful, IV to RAC established. Rocephin hung per AUG. Original Note: POC 146 mg/dl. 2100 insulin held as FSBS did not meet sliding scale parameters. IV to left forearm infiltrated and painful, IV to LAC established, Rocpehin hung per AUG. Continue to monitor.
--- NOTE | 2020-06-27 02:57 | PC.NURSE ---
pt assisted to bedside commode, brief changed and sling adjusted.
[2020-06-27] MEDS: predniSONE 20 MG TABLET 40 MG PO (07:37)
[2020-06-27] MEDS: Enoxaparin Sodium 40 MG/0.4 ML SYRINGE SUBCUT (07:37)
[2020-06-27 07:41] LABS: Glucose, Whole Blood 99 mg/dL (60-115)
--- NOTE | 2020-06-27 08:12 | PC.NURSE ---
EATING BREAKFAST, GOT UP W ASSIST TO COMMODE, NAD, AWARE OF CARE PLAN
--- NOTE | 2020-06-27 08:36 | HO.PM.IMPN ---
Subjective Subjective Date of Service: 06/27/20 Interval History: left writst pain Cardiovascular Cardiovascular: Reports no additional cardiovascular complaints Gastrointestinal Gastrointestinal: Reports no additional gastrointestinal complaints Physical Exam Vital Signs: Vital Signs: Last Vital Signs Temp 97.7 F 06/26/20 23:41 Pulse 67 06/26/20 23:41 Resp 16 06/26/20 23:41 BP 148/68 H 06/26/20 23:41 Pulse Ox 92 06/26/20 23:41 Body Mass Index 24.1 General: AO X 3, no acute distress Resp: CTA bilateral CVS: S1,S2,RRR GI: soft, non tender, non distended Neuro: motor grossly intact Psych: appropriate affect Objective Data Current Medications Generic Name Dose Route Start Last Admin Trade Name Freq PRN Reason Stop Dose Admin Acetaminophen 650 mg 06/25/20 06:16 06/26/20 06:53 Acetaminophen 325 Mg Tablet PO 650 mg Q6H PRN Administration Pain, Mild (Pain Scale 1-3) Albuterol/Ipratropium 3 ml 06/25/20 08:00 06/26/20 20:28 Albuterol/Iprat 2.5/0.5mg 3 Ml Ampul.Neb INHALE Not Given RQ4H WHILE AWAKE NAYELI Albuterol/Ipratropium 3 ml 06/25/20 06:16 Albuterol/Iprat 2.5/0.5mg 3 Ml Ampul.Neb INHALE RQ4H PRN Shortness of Breath/Wheezing Docusate Sodium 100 mg 06/25/20 06:16 Docusate Sodium 100 Mg Capsule PO DAILY PRN Constipation Enoxaparin Sodium 40 mg 06/25/20 06:16 06/27/20 07:37 Enoxaparin Sodium 40 Mg/0.4 Ml Syringe SUBCUT 40 mg Q24H NAYELI Administration Ceftriaxone Sodium 1 gm/ 50 mls @ 100 mls/hr 06/25/20 21:00 06/27/20 00:24 Sodium Chloride IV Infused Q24H NAYELI Infusion Insulin Human Lispro 0 unit 06/25/20 07:30 06/27/20 07:40 Insulin Lispro 100 Unit/Ml 3 Ml Vial SUBCUT Not Given QIDACHS [facility] Protocol Ondansetron HCl 4 mg 06/25/20 06:16 Ondansetron Hcl 4 Mg/2 Ml Vial IVPUSH Q8H PRN Nausea and Vomiting Prednisone 40 mg 06/26/20 09:00 06/27/20 07:37 Prednisone 20 Mg Tablet PO 40 mg DAILY NAYELI Administration Labs CBC & Chem 7: 06/26/20 05:19 06/26/20 05:19 Microbiology Microbiology Results: Microbiology 06/24/20 19:22 Blood - Venous Blood Culture - Preliminary No growth after 48 hours. 06/24/20 19:20 Blood - Venous Blood Culture - Preliminary No growth after 48 hours. 06/24/20 22:18 Urine clean catch - Clean Catch Midstream Urine Culture - Final Escherichia coli Assessment and Plan (1) Distal radius fracture, left: Status: Acute (2) Chronic obstructive pulmonary disease with (acute) exacerbation: Status: Acute (3) Acute UTI: Status: Acute (4) Falls: Status: Acute (5) Acute and chronic respiratory failure with hypoxia: Status: Acute Assessment and Plan: 75F presented with fall Acute hypoxic respiratory failure secondary to COPD exacerbation Very mild, denies any symptoms, likely has chronic low normal to hypoxic saturations at baseline Changed to p.o. prednisone Bronchodilators as needed Positive UA with pansensitive E coli changed to po amoxil 500mg q8, day 3/ Left wrist fracture Ortho appreciated Plan for non urgent ORIF as outpatient Will need rehab
--- NOTE | 2020-06-27 08:46 | PM.DS ---
DS: Providers Provider Date of Service: 06/27/20 Date of admission: 06/25/20 06:16 Primary care physician: Bibi Zhang MD Consults: 06/25/20 09:34 Consult to Orthopedics Routine Consulting Provider: Susan Barrios Reason for consultation: Impacted distal radial metaphyseal fracture, ulnar styloid fracture DS: Diagnosis Discharge Diagnosis (1) Distal radius fracture, left: Status: Acute (2) Chronic obstructive pulmonary disease with (acute) exacerbation: Status: Acute (3) Acute UTI: Status: Acute (4) Falls: Status: Acute (5) Acute and chronic respiratory failure with hypoxia: Status: Acute DS: Medications Discharge Medications Home Medications: Home Medications Medication Instructions Recorded Confirmed albuterol sulfate [Ventolin HFA] 1 inh INHALATION QID PRN 06/24/20 06/24/20 budesonide-formoterol [Symbicort] 2 puff INHALATION BID 06/24/20 06/24/20 metformin 500 mg PO BID 06/24/20 06/26/20 Previous Rx's Medication Instructions Recorded amoxicillin 500 mg PO Q8H #6 cap 06/27/20 prednisone 40 mg PO DAILY #6 tab 06/27/20 DS: Summary Hospital Course Hospital Course: Patient was admitted for acute hypoxic respiratory failure due to COPD exacerbation and fall complicated by left distal radius fracture and urinary tract infection. He was given steroids, bronchodilators and respiratory symptoms returned to baseline. She will continue 3 more days of p.o. prednisone on discharge. For her urinary tract infection, urine culture grew pansensitive E coli, she was initially treated with ceftriaxone, and will complete 5 days total antibiotics with amoxicillin as outpatient. For her wrist fracture she was seen by Orthopedics who recommended non urgent follow-up within 1 week for ORIF. In the meantime, patient will be discharged [facility]. Time Spent with Patient Time attestation: Total time spent providing and/or coordinating discharge services: Discharge coordination time: Greater than 30 minutes Physical Exam Vital Signs: Vital Signs: Last Vital Signs Temp 97.7 F 06/26/20 23:41 Pulse 67 06/26/20 23:41 Resp 16 06/26/20 23:41 BP 148/68 H 06/26/20 23:41 Pulse Ox 92 06/26/20 23:41 Body Mass Index 24.1 General: AO X 3, no acute distress Resp: CTA bilateral CVS: S1,S2,RRR GI: soft, non tender, non distended Neuro: motor grossly intact Psych: appropriate affect DS: Data Data Completed and Pending Labs on day of discharge: Laboratory Tests 06/24/20 06/24/20 06/24/20 17:57 18:39 18:43 WBC 7.7 RBC 4.58 Hgb 13.1 Hct 39.6 MCV 86.5 MCH 28.6 MCHC 33.1 RDW 13.3 Plt Count 277 MPV 9.9 Immature Gran % (Auto) 0.6 H Neut % (Auto) 64.7 Lymph % (Auto) 22.2 [place] % (Auto) 12.3 H Eos % (Auto) 0.1 Baso % (Auto) 0.1 Lymph # (Auto) 1.7 [place] # (Auto) 1.0 Eos # (Auto) 0.0 Baso # (Auto) 0.0 Abs Immat Gran (auto) 0.05 H Absolute Neuts (auto) 5.0 Absolute Nucleated RBC 0.000 Nucleated RBC % (auto) 0.0 Smear Tech's Comments VERIFIED PT INR APTT Sodium Potassium Chloride Carbon Dioxide Anion Gap BUN Creatinine Estim Creat Clear Calc Estimated GFR POC Glucose 116 H Random Glucose Lactic Acid Calcium Total Bilirubin AST ALT Alkaline Phosphatase Troponin I High Sens Total Protein Albumin Urine Color Urine Appearance Urine pH Ur Specific [place] Urine Protein Urine Glucose (UA) Urine Ketones Urine Blood Urine Nitrite Ur Leukocyte Esterase Urine RBC Urine WBC Ur Squamous Epith Cells Urine Bacteria Urine Mucus Coronavirus (PCR) NEGATIVE COVID-19 (RON) COVID-19 Clin Com Influenza Type A (PCR) NEGATIVE Influenza Type B (PCR) NEGATIVE RSV RNA Qual (PCR) NEGATIVE 06/24/20 06/24/20 06/24/20 18:43 18:43 18:43 WBC RBC Hgb Hct MCV MCH MCHC RDW Plt Count MPV Immature Gran % (Auto) Neut % (Auto) Lymph % (Auto) [place] % (Auto) Eos % (Auto) Baso % (Auto) Lymph # (Auto) [place] # (Auto) Eos # (Auto) Baso # (Auto) Abs Immat Gran (auto) Absolute Neuts (auto) Absolute Nucleated RBC Nucleated RBC % (auto) Smear Tech's Comments PT 14.3 H INR 1.2 H APTT 29.9 Sodium 136 Potassium 3.8 Chloride 99 Carbon Dioxide 23 Anion Gap 18 BUN 12 Creatinine 0.76 Estim Creat Clear Calc 51.5 Estimated GFR > 60 POC Glucose Random Glucose 115 Lactic Acid Calcium 8.4 Total Bilirubin 0.6 AST 25 ALT 10 Alkaline Phosphatase 75 Troponin I High Sens 45.7 H Total Protein 6.8 Albumin 3.6 Urine Color Urine Appearance Urine pH Ur Specific [place] Urine Protein Urine Glucose (UA) Urine Ketones Urine Blood Urine Nitrite Ur Leukocyte Esterase Urine RBC Urine WBC Ur Squamous Epith Cells Urine Bacteria Urine Mucus Coronavirus (PCR) COVID-19 (RON) COVID-19 Clin Com Influenza Type A (PCR) Influenza Type B (PCR) RSV RNA Qual (PCR) 06/24/20 06/24/20 06/24/20 19:20 22:18 22:18 WBC RBC Hgb Hct MCV MCH MCHC RDW Plt Count MPV Immature Gran % (Auto) Neut % (Auto) Lymph % (Auto) [place] % (Auto) Eos % (Auto) Baso % (Auto) Lymph # (Auto) [place] # (Auto) Eos # (Auto) Baso # (Auto) Abs Immat Gran (auto) Absolute Neuts (auto) Absolute Nucleated RBC Nucleated RBC % (auto) Smear Tech's Comments PT INR APTT Sodium Potassium Chloride Carbon Dioxide Anion Gap BUN Creatinine Estim Creat Clear Calc Estimated GFR POC Glucose Random Glucose Lactic Acid 0.9 Calcium Total Bilirubin AST ALT Alkaline Phosphatase Troponin I High Sens 50.4 H Total Protein Albumin Urine Color YELLOW Urine Appearance HAZY Urine pH 6.0 Ur Specific [place] 1.010 Urine Protein NEG Urine Glucose (UA) NEG Urine Ketones 40 Urine Blood TRACE Urine Nitrite POS H Ur Leukocyte Esterase NEG Urine RBC 1-4 Urine WBC 1-4 Ur Squamous Epith Cells 1+ Urine Bacteria 3+ Urine Mucus 1+ Coronavirus (PCR) COVID-19 (RON) COVID-19 Clin Com Influenza Type A (PCR) Influenza Type B (PCR) RSV RNA Qual (PCR) 06/25/20 06/25/20 06/25/20 08:45 12:50 18:07 WBC RBC Hgb Hct MCV MCH MCHC RDW Plt Count MPV Immature Gran % (Auto) Neut % (Auto) Lymph % (Auto) [place] % (Auto) Eos % (Auto) Baso % (Auto) Lymph # (Auto) [place] # (Auto) Eos # (Auto) Baso # (Auto) Abs Immat Gran (auto) Absolute Neuts (auto) Absolute Nucleated RBC Nucleated RBC % (auto) Smear Tech's Comments PT INR APTT Sodium Potassium Chloride Carbon Dioxide Anion Gap BUN Creatinine Estim Creat Clear Calc Estimated GFR POC Glucose 172 H 174 H 169 H Random Glucose Lactic Acid Calcium Total Bilirubin AST ALT Alkaline Phosphatase Troponin I High Sens Total Protein Albumin Urine Color Urine Appearance Urine pH Ur Specific [place] Urine Protein Urine Glucose (UA) Urine Ketones Urine Blood Urine Nitrite Ur Leukocyte Esterase Urine RBC Urine WBC Ur Squamous Epith Cells Urine Bacteria Urine Mucus Coronavirus (PCR) COVID-19 (RON) COVID-19 Clin Com Influenza Type A (PCR) Influenza Type B (PCR) RSV RNA Qual (PCR) 06/25/20 06/26/20 06/26/20 20:12 05:19 05:19 WBC 10.6 RBC 4.19 L Hgb 12.0 Hct 35.9 L MCV 85.7 MCH 28.6 MCHC 33.4 RDW 13.1 Plt Count 323 MPV 10.0 Immature Gran % (Auto) 0.6 H Neut % (Auto) 72.5 Lymph % (Auto) 16.6 L [place] % (Auto) 10.2 Eos % (Auto) 0.0 Baso % (Auto) 0.1 Lymph # (Auto) 1.8 [place] # (Auto) 1.1 Eos # (Auto) 0.0 Baso # (Auto) 0.0 Abs Immat Gran (auto) 0.06 H Absolute Neuts (auto) 7.7 Absolute Nucleated RBC 0.000 Nucleated RBC % (auto) 0.0 Smear Tech's Comments VERIFIED PT INR APTT Sodium 139 Potassium 3.5 Chloride 104 Carbon Dioxide 27 Anion Gap 12 BUN 11 Creatinine 0.66 Estim Creat Clear Calc 59.3 Estimated GFR > 60 POC Glucose 219 H Random Glucose 139 H Lactic Acid Calcium 8.2 L Total Bilirubin AST ALT Alkaline Phosphatase Troponin I High Sens Total Protein Albumin Urine Color Urine Appearance Urine pH Ur Specific [place] Urine Protein Urine Glucose (UA) Urine Ketones Urine Blood Urine Nitrite Ur Leukocyte Esterase Urine RBC Urine WBC Ur Squamous Epith Cells Urine Bacteria Urine Mucus Coronavirus (PCR) COVID-19 (RON) COVID-19 Clin Com Influenza Type A (PCR) Influenza Type B (PCR) RSV RNA Qual (PCR) 06/26/20 06/26/20 06/26/20 06:00 12:38 13:02 WBC RBC Hgb Hct MCV MCH MCHC RDW Plt Count MPV Immature Gran % (Auto) Neut % (Auto) Lymph % (Auto) [place] % (Auto) Eos % (Auto) Baso % (Auto) Lymph # (Auto) [place] # (Auto) Eos # (Auto) Baso # (Auto) Abs Immat Gran (auto) Absolute Neuts (auto) Absolute Nucleated RBC Nucleated RBC % (auto) Smear Tech's Comments PT INR APTT Sodium Potassium Chloride Carbon Dioxide Anion Gap BUN Creatinine Estim Creat Clear Calc Estimated GFR POC Glucose 120 H 153 H Random Glucose Lactic Acid Calcium Total Bilirubin AST ALT Alkaline Phosphatase Troponin I High Sens Total Protein Albumin Urine Color Urine Appearance Urine pH Ur Specific [place] Urine Protein Urine Glucose (UA) Urine Ketones Urine Blood Urine Nitrite Ur Leukocyte Esterase Urine RBC Urine WBC Ur Squamous Epith Cells Urine Bacteria Urine Mucus Coronavirus (PCR) COVID-19 (RON) Negative COVID-19 Clin Com See Note Influenza Type A (PCR) Influenza Type B (PCR) RSV RNA Qual (PCR) 06/26/20 06/26/20 06/27/20 16:46 22:07 07:34 WBC RBC Hgb Hct MCV MCH MCHC RDW Plt Count MPV Immature Gran % (Auto) Neut % (Auto) Lymph % (Auto) [place] % (Auto) Eos % (Auto) Baso % (Auto) Lymph # (Auto) [place] # (Auto) Eos # (Auto) Baso # (Auto) Abs Immat Gran (auto) Absolute Neuts (auto) Absolute Nucleated RBC Nucleated RBC % (auto) Smear Tech's Comments PT INR APTT Sodium Potassium Chloride Carbon Dioxide Anion Gap BUN Creatinine Estim Creat Clear Calc Estimated GFR POC Glucose 164 H 146 H 99 Random Glucose Lactic Acid Calcium Total Bilirubin AST ALT Alkaline Phosphatase Troponin I High Sens Total Protein Albumin Urine Color Urine Appearance Urine pH Ur Specific [place] Urine Protein Urine Glucose (UA) Urine Ketones Urine Blood Urine Nitrite Ur Leukocyte Esterase Urine RBC Urine WBC Ur Squamous Epith Cells Urine Bacteria Urine Mucus Coronavirus (PCR) COVID-19 (RON) COVID-19 Clin Com Influenza Type A (PCR) Influenza Type B (PCR) RSV RNA Qual (PCR) Preliminary micro results at discharge 06/24/20 19:22 Blood Culture - Preliminary Blood - Venous No growth after 48 hours. 06/24/20 19:20 Blood Culture - Preliminary Blood - Venous No growth after 48 hours. Discharge Plan Discharge Patient Disposition: er SNF Referrals: [facility] [Outside] Bibi Zhang MD [Primary Care Provider] - Delroy Humphrey PA-C [Physician Insurance Producer] - Discharge Medications: New amoxicillin 500 mg Capsule 500 mg PO Q8H Qty: 6 RF: 0 prednisone 20 mg Tablet 40 mg PO DAILY Qty: 6 RF: 0 Continued metformin 500 mg tablet 500 mg PO BID RF: 0 albuterol sulfate [Ventolin HFA] 90 mcg/actuation Hfa Aerosol Inhaler 1 inh INHALATION QID PRN (Reason: Shortness Of Breath) RF: 0 budesonide-formoterol [Symbicort] 160-4.5 mcg/actuation HFA aerosol inhaler 2 puff inhalation BID RF: 0 Discharge Orders: Discharge Order (Routine); Ordered 06/27/20 Ordered By: Steve Maurer Activity on Discharge: MANUEL guerrero Stand Alone Forms: Patient Portal Discharge page Activity Restrictions/Additional Instructions: Follow up with [facility] 06/27/20 to discuss surgery on left wrist. Care Plan Goals: recovery Health Concerns: left wrist fracture, copd, uti Plan of Treatment: 2 more days of amoxil, 3 more days prednisone, plan for ortho follow up for surgery
[2020-06-27 08:47] VITALS: PULSE 66; O2SAT 94
[2020-06-27] MEDS: Albuterol/Iprat 2.5/0.5MG 3 ML AMPUL.NEB INHALE (08:47)
[2020-06-27] MEDS: Amoxicillin 500 MG CAPSULE PO (09:55)
--- NOTE | 2020-06-27 10:57 | PC.NURSE ---
physical therapy at bedside getting the pt out for morning ambulation
[2020-06-27 11:51] LABS: Glucose, Whole Blood 155 mg/dL (60-115)
--- NOTE | 2020-06-27 12:07 | MHC.CM.PN ---
Matt Narvaez has obtained insurance auth. Patient can leave at 1pm. Dr Maurer aware. Patient, son Abdi and s/o Jg aware. [facility] booked for 1pm. Med nec with chart. Continue to monitor for d/c needs.
[2020-06-27 12:32] VITALS: PULSE 66; O2SAT 92
--- NOTE | 2020-06-27 12:33 | PC.NURSE ---
report given to tammi case management at [place]
--- NOTE | 2020-06-27 12:43 | PC.NURSE ---
pt set up with her lunch yanet
== END 2020-06-27 13:32 | disposition skilled nursing facility (03) | DRG 190 ==
LOC: HO.ED 06-25 01:39 → HO.EDOVER 06-25 07:10 → HO.S3 06-26 07:29 → HO.EDOVER 06-26 08:50
PROVIDERS: Internal Medicine; Physician Assistant; Admitting Provider Internal Medicine; Emergency Provider Emergency Medicine; PCP Internal Medicine; Visit Provider Internal Medicine
DX: J44.1 Chronic obstructive pulmonary disease with (acute) exacerbation (principal); J96.21 Acute and chronic respiratory failure with hypoxia; N39.0 Urinary tract infection, site not specified; S52.502A Unspecified fracture of the lower end of left radius, initial encounter for closed fracture; E11.9 Type 2 diabetes mellitus without complications; R29.6 Repeated falls; W18.30XA Fall on same level, unspecified, initial encounter; B96.20 Unspecified Escherichia coli [E. coli] as the cause of diseases classified elsewhere; Y93.9 Activity, unspecified; Y92.9 Unspecified place or not applicable; Y99.9 Unspecified external cause status; Z91.81 History of falling; Z20.822 Contact with and (suspected) exposure to COVID-19; Z79.84 Long term (current) use of oral hypoglycemic drugs; Z79.899 Other long term (current) drug therapy
CPT/HCPCS: 0241U; 36415; 70450; 71275; 72125; 73110; 74177; 80048; 80053; 81001; 82947; 83605; 84484; 85025; 85610; 85730; 87040; 87086; 87088; 87186; 87635; 93005; 94640; 94664; 97116; 97162; 97166; 97530; 97535; 99284; J0456; J0696; J1650; J2920; J2930; J3475; Q9967

== ENCOUNTER 2020-07-01 13:16 | Day surgery (SDC) | payer MEDICARE, OTHER, SELFPAY ==
--- NOTE | 2020-06-28 11:46 | P.CONAN_ITS ---
Documented by User: Isabellaher Javedney 06/28/20 12:19 HPI - Anesthesia Eval Consult details Narrative: 75yo F for Radius Distal Fracture ORIF [facility] d/c on 06/27/20 to rehab after COPD exac. D/C with prednisone taper. Reviewed with Dr Trevon MA Past Medical History Medical History Acute and chronic respiratory failure with hypoxia COPD (chronic obstructive pulmonary disease) Diabetes Social History Social History Alcohol intake: unknown Smoking Status: Current some day smoker Cigarettes Per Day: 5 Use of substances other than those prescribed or required for medical reasons: No Advance Directives: No Advance Directives Information Provided: Yes service: No Current occupational status: retired [employer] Allergies Allergy/AdvReac Type Severity Reaction Status Date / Time No Known Allergies Allergy Verified 06/24/20 18:03 Home Medications Medication Instructions Recorded Confirmed Type albuterol sulfate [Ventolin HFA] 1 inh INHALATION QID PRN 06/24/20 06/24/20 History budesonide-formoterol [Symbicort] 2 puff INHALATION BID 06/24/20 06/24/20 History metformin 500 mg PO BID 06/24/20 06/26/20 History Exam Exam Date and Time: June 28, 2020 1146 Pertinent Lab Results Pertinent Lab Results: Laboratory Tests 06/26/20 06/26/20 05:19 05:19 WBC 10.6 Hgb 12.0 Hct 35.9 L Plt Count 323 Sodium 139 Potassium 3.5 Chloride 104 Carbon Dioxide 27 BUN 11 Creatinine 0.66 Narrative Narrative: EKG 06/24/20 Sinus rhythm with occasional Premature ventricular complexes Nonspecific ST abnormality Abnormal ECG No previous ECGs available Assessment and Plan Assessment Anesthesia Assessment: Chart Reviewed Documented by User: Honorio Barcenas MD 07/01/20 15:59 [facility] Past Medical History Medical History Acute and chronic respiratory failure with hypoxia COPD (chronic obstructive pulmonary disease) Diabetes Social History Social History Alcohol intake: unknown Smoking Status: Current some day smoker Cigarettes Per Day: 5 Use of substances other than those prescribed or required for medical reasons: No Advance Directives: No Advance Directives Information Provided: Yes service: No Current occupational status: retired Meds Allergies Allergy/AdvReac Type Severity Reaction Status Date / Time No Known Allergies Allergy Verified 06/24/20 18:03 Home Medications Medication Instructions Recorded Confirmed Type albuterol sulfate [Ventolin HFA] 1 inh INHALATION QID PRN 06/24/20 06/24/20 History budesonide-formoterol [Symbicort] 2 puff INHALATION BID 06/24/20 06/24/20 History metformin 500 mg PO BID 06/24/20 06/26/20 History Exam Airway Mallampati Class: III TM Dist: >3cm Denture: Upper and Lower Heart: RRR Lungs: Nonlabored Assessment and Plan Assessment Anesthesia Assessment: Anesthesia Plan Discussed and Chart Reviewed Final Anesthetic Review NPO: Yes ASA Class: III Final Preanesthetic Review: No Changes in Pt Med Stat, Meds/Allgs Chart Reviewed, Consent Obtained/Reviewed and Anes Risks/Benef Reviewed Patient Risk: Intermediate Procedure Risk: Low Anesthetic Plan Anesthetic Plan: GA and Regional Block Disposition: Standard PACU
[2020-07-01] VITALS (9 sets, daily range): BP systolic 103–137; BP diastolic 53–72; PULSE 57–63; RESP 15–20; TEMP 36.4–36.6; O2SAT 91–96; BMI 24.0
[2020-07-01 13:45] LABS: Glucose, Whole Blood 113 mg/dL (60-115)
--- NOTE | 2020-07-01 15:29 | FL_ITS ---
EXAMINATION: XR FLUOROSCOPY WITH IMAGES CLINICAL INFORMATION: Distal left radial fracture open reduction internal fixation. COMPARISON: Left wrist radiographs 06/24/2020. TECHNIQUE: Fluoroscopy performed by Dr. Susan Barrios. Fluoroscopy time: 32.4 seconds. Dosage: 17,215 Gycm2. Images: 2 FINDINGS: Plate and screw device is present overlying the distal radial fracture. No significant fracture fragment displacement is seen with improved alignment since the prior study. FL/FL guidance in OR IMPRESSION: Fluoroscopy and spot films provided during right radial fracture ORIF.
--- NOTE | 2020-07-01 15:42 | MHC.SHP ---
Pre-Procedural Eval Section B Chief Complaint: radius fx Allergies: Allergies Allergy/AdvReac Type Severity Reaction Status Date / Time No Known Allergies Allergy Verified 06/24/20 18:03 Plan I have reviewed the history and physical and performed a pertinent physical examination on my patient. No changes have occurred unless specified.
--- NOTE | 2020-07-01 16:11 | P.OP_ITS ---
Operative Note Operative Note Date of Service: 07/01/20 Narrative: Operative Note Narrative: Preop diagnosis: 1. Left Distal radius fracture Postop diagnosis: Same Procedure: 1. Left Distal radius fracture open reduction internal fixation, two-part intra-articular Surgeon: Susan Barrios MD Anesthesia: Mac plus regional block Findings: Left distal radius fracture with intra-articular extension, DRUJ stable after ORIF of distal radius Implants: A 3 hole Accu Med volar locking plate, with 4 2.3 mm locking pegs/screws, and 3 3.5 mm cortical screws Tourniquet time: 30 minutes EBL: 5.0 ml Specimen: None Drains: None Complications: None Disposition: Brought to the recovery room in stable condition Plan: Follow-up in 10-14 days for wound check, suture removal and postop radiographs The patient will be placed in either a short-arm cast or a volar wrist splint. Encouraged no lifting of anything heavier than a cell phone. Please encourage active and passive range of motion of the digits. Follow-up at 4-5 weeks postop for repeat radiographs. Indications: The patient is a 75 year old woman with a displaced left distal radius fracture . The risks and benefits of operative treatment, including but not limited to risk of damage to blood vessels, nerves, tendons, infection, recurrence, persistent pain or numbness, incomplete resolution of preoperative symptoms, or need for further surgery were discussed with the patient and they wished to proceed with surgery. Procedure: Once consent was obtained patient was brought back to the operating suite and placed in the operating table in a supine position. A regional block was performed by the anesthesia team. Perioperative antibiotics and anesthesia was administered by the anesthesia team. A tourniquet was applied to the proximal aspect of the left upper extremity and the limb was prepped and draped in a standard surgical fashion. The limb was elevated exsanguinated with Esmarch bandage and the tourniquet inflated to 250 mm of mercury for a total tourniquet time of 30 minutes. The FluoroScan was used throughout the case to assess our reduction, and facilitate implant placement. A gentle closed reduction was 1st performed on the patient's left distal radius fracture. Was assessed radiographically before proceeding with the reduction internal fixation. I then made an 8 cm longitudinal incision over the distal aspect of the flexor carpi radialis tendon. The incision was made through the skin to the subcutaneous tissue using a 15. Blade. Then carefully dissected down to flexor carpi radialis tendon she tenotomy scissors. The FCR tendon sheath was then incised longitudinally using tenotomy scissors under direct visualization. The FCR tendon was then retracted ulnarly. I then made a longitudinal incision in the volar forearm fascia through the floor of FCR tendon sheath using tenotomy scissors under direct visualization. I identified the interval between the radial artery and the flexor tendons. This interval was developed further with my index finger, releasing some of the muscular fibers of the flexor pollicis longus. A dull weatlander retractor was then placed. I then created an ulnarly based flap of the pronator quadratus by releasing the radial and distal edges using a 15. Blade. A Jeffers elevator was used to elevate the pronator quadratus from the volar surface of the distal radius. This then revealed to us our distal radius fract ure. An open reduction was then performed on our distal radius fracture. I then placed a short narrow 3 hole Accu Med volar locking plate on the volar surface of the distal radius. I placed a single K-wire through the distal aspect of the plate and into the distal radius. This was assessed using fluoroscopic images. I was satisfied with the placement of our plate. I then placed 4 2.3 mm l ocking screws/pegs in the distal aspect of the plate and distal radius by 1st drilling bicortically with a 1.5 mm drill bit, measuring with a depth gauge, and placing the appropriate length locking screws/pegs. The placement of our plate and screws was then assessed again using fluoroscopic images. The once satisfied with the placement of the volar locking plate and screws on the distal aspect of the distal radius, the plate was then reduced to the shaft of the radius. I then placed 3 3.5 mm cortical screws to the proximal aspect of the plate and into the shaft of the radius. This was done by 1st drilling bicortically with a 2.5 mm drill bit, measuring with a depth gauge, and placing the appropriate length screw. Final radiographs were then obtained. The DRUJ was assessed and found to be stable on exam. I was satisfied with our reduction and placement of all implants. At this point the wound was irrigated with normal saline. The pronator quadratus was reduced back over the volar locking plate using some 3-0 Vicryl suture material. The tourniquet was then deflated and hemostasis was obtained with a brief period of local pressure and bipolar monopolar electrocautery. The subcutaneous layer was then reapproximated using some 4-0 Vicryl suture, and the skin edges were reapproximated using some 5 0 Prolene suture. The wound was then infiltrated with some 1% lidocaine with epinephrine postop pain control. A sterile dressing and a short dorsal splint allowing for active flexion and extension of the digits was applied. The patient appears to have tolerated the procedure well and with no complications. All digits were well vascularized conclusion of the case.
--- NOTE | 2020-07-01 18:25 | PC.NURSE ---
PATIENT SA02 9-91% ROOM AIR. RT CALLED TO BEDSIDE TO ADMINISTER UPDRAFT TREATMENT. NO COMPLAINTS OF SOB.
[2020-07-01] MEDS: Albuterol Sulfate (0.083%) 2.5 MG/3 ML VIAL.NEB INHALE (18:30)
== END 2020-07-01 19:20 | disposition home or self-care (01) ==
PROVIDERS: PCP Internal Medicine; Visit Provider Orthopaedic Surgery
PROC: (CPT 25608; principal; 2020-07-01 14:30)
DX: S52.572A Other intraarticular fracture of lower end of left radius, initial encounter for closed fracture (principal); J44.9 Chronic obstructive pulmonary disease, unspecified; E11.9 Type 2 diabetes mellitus without complications; Z79.84 Long term (current) use of oral hypoglycemic drugs; Z79.51 Long term (current) use of inhaled steroids
CPT/HCPCS: 25608; 82947; 94640; C1713; C1769; J0690; J2250; J2405; J3010

== ENCOUNTER 2020-07-11 08:18 | Outpatient (REF) | payer MEDICARE, OTHER, SELFPAY ==
--- NOTE | 2020-07-11 09:21 | XR_ITS ---
EXAMINATION: XR WRIST, LEFT CLINICAL INFORMATION: Pain in the left wrist COMPARISON: 06/24/2020 TECHNIQUE: PA, lateral, and oblique views of the left wrist. FINDINGS: There is plate and screw fixation hardware transfixing the distal radial fracture with near-anatomic alignment. The fracture line is faintly visualized. Displaced ulnar styloid fracture noted. Decreased soft tissue swelling from prior. The carpal rows are well aligned. Osteopenia. XR/XR wrist LT min 3V IMPRESSION: Plate and screw fixation of the distal radial fracture with near-anatomic alignment. Intact hardware. Ulnar styloid fracture again noted.
== END 2020-07-11 08:19 | disposition home or self-care (01) ==
LOC: HO.HOSX 08:18
PROVIDERS: Visit Provider Physician Assistant
DX: S52.502D Unspecified fracture of the lower end of left radius, subsequent encounter for closed fracture with routine healing (principal)
CPT/HCPCS: 73110; 99212

== ENCOUNTER 2020-07-16 14:36 | Inpatient (IN) | payer MEDICARE, OTHER, SELFPAY ==
--- NOTE | ~2020-07-16 | XR_ITS ---
EXAMINATION: XR KNEE, LEFT CLINICAL INFORMATION: Status post fall. Pain. COMPARISON: None TECHNIQUE: Four views of the left knee. FINDINGS: There is moderate suprapatellar joint effusion. There is a nondisplaced vertical fracture midline distal femur extending to the articular surface with There is anterior superior patellar enthesophyte. There is diffuse osteopenia. XR/XR knee LT 4V IMPRESSION: Nondisplaced vertical fracture distal femur extending to the intra-articular surface. Moderate suprapatellar joint effusion.
--- NOTE | ~2020-07-16 | FL_ITS ---
EXAMINATION: Intraoperative fluoroscopy CLINICAL INFORMATION: Distal left femoral fracture COMPARISON: CT and x-rays of the left knee July 26, 2020 TECHNIQUE: Intraoperative fluoroscopy was provided for use by Dr. Laguna. A total of 2 images were saved to PACS. A radiologist was not present during imaging. Today's dictation is only for administrative purposes to document intraoperative fluoroscopic usage. TOTAL FLUOROSCOPIC TIME: 0.7 minutes FL/FL guidance in OR FINDINGS~\^^ Intraoperative fluoroscopy provided for use by Dr. Laguna. Please see operative note for detailed findings.
--- NOTE | ~2020-07-16 | CT_ITS ---
EXAMINATION: CT KNEE WITHOUT CONTRAST, LEFT CLINICAL INFORMATION: Trauma COMPARISON: Radiographs performed earlier same date TECHNIQUE: Multidetector CT imaging of the left knee was performed without use of intravenous contrast. Coronal and sagittal reformats are reviewed. FINDINGS: Nondisplaced fracture of the distal femur oriented in the sagittal plane extending from the intercondylar notch, marginally involving the medial aspect of the lateral femoral condylar articular surface and lateral femoral trochlea superiorly evident along the posterior femoral metaphyseal cortex, approximately 6 cm. The fracture does not involve the anterior femoral cortex proximal to the trochlea and appears incomplete in the sense that it is unicortical posteriorly. No additional acute fractures. Severe osseous demineralization. Small patellofemoral and medial tibiofemoral compartment marginal osteophytes and mild narrowing of the medial tibiofemoral compartment joint space. There is a large lipohemarthrosis. CT/CT knee LT wo con IMPRESSION: * Nondisplaced fracture of the distal femoral metaphysis oriented in the sagittal plane extending to the intercondylar femoral notch and medial aspect of the lateral femoral condyle articular surface, as well as the lateral patellofemoral joint. * Large lipohemarthrosis.
[2020-07-16 14:44] VITALS: BP 119/66; BP 149/76; PULSE 73; PULSE 82; RESP 18; TEMP 36.3; O2SAT 95; O2SAT 96; BMI 23.6
--- NOTE | 2020-07-16 16:17 | ED.FALL ---
HPI - Fall General Chief Complaint: Fall Stated Complaint: FALL W/ L KNEE PAIN Time Seen by Provider: 07/16/20 15:00 Source: patient and EMS Mode of arrival: EMS Limitations: no limitations History of Present Illness HPI Narrative: 75 y/o female with history of COPD presenting with left knee pain after she slipped and fell outside this morning. She states she was coming inside from smoking and she went to go pull the slider door open when she slipped and fell. She did not hit head head or lose consciousness. She is not on blood thinner. She recently had another fall last month resulting in left radial fracture that she had surgery on (07/01). She denies any other injuries. She reports not being able to bear weight on the left leg due to pain. MD complaint: fall Onset (ago): hour(s) (8) Fall from: standing Fall witnessed: no Place fall occurred: home Loss of consciousness: none Prolonged down time: no Symptoms prior to fall: none Context: tripped/slipped Location of injury - extremities: left: knee (posterior ) Severity: moderate Severity scale (1-10): 6 Quality: stabbing and aching Associated symptoms (after fall): unable to walk Related Data Home Medications Medication Instructions Recorded Confirmed albuterol sulfate [Ventolin HFA] 1 inh INHALATION QID PRN 06/24/20 06/24/20 budesonide-formoterol [Symbicort] 2 puff INHALATION BID 06/24/20 06/24/20 metformin 500 mg PO BID 06/24/20 06/26/20 Previous Rx's Medication Instructions Recorded amoxicillin 500 mg PO Q8H #6 cap 06/27/20 prednisone 40 mg PO DAILY #6 tab 06/27/20 hydrocodone-acetaminophen 1 - 2 tab PO Q6H PRN #20 tab 07/01/20 Allergies Allergy/AdvReac Type Severity Reaction Status Date / Time No Known Allergies Allergy Verified 06/24/20 18:03 Review of Systems Review of Systems: Constitutional: No Fever, No Chills Cardiovascular: No Chest Pain, No SOB, No Orthopnea, No Edema Respiratory: No Cough, No Sputum, No Wheezing, No dyspnea Gastrointestinal: No Nausea, No Vomiting, No Diarrhea, No abdominal Pain Genitourinary: No Dysuria, No Urinary Frequency, No Hematuria Musculoskeletal: + joint pain, No Myalgias Skin: No Skin Lesions, No rash Neuro: No Weakness, No Numbness, No Dizziness, No Headache Psych: No Anxiety/Panic, No Depression Heme/Lymph: + Bruising (wrist), No Lymphadenopathy PMFSH Past Medical History Medical History Acute and chronic respiratory failure with hypoxia COPD (chronic obstructive pulmonary disease) Diabetes Social History Social History Alcohol intake: unknown Smoking Status: Current every day smoker Cigarettes Per Day: 5 Use of substances other than those prescribed or required for medical reasons: No Advance Directives: No Advance Directives Information Provided: No service: No Current occupational status: retired Physical Exam Vital Signs: Vital Signs: Last Vital Signs Temp 97.4 F 07/16/20 14:44 Pulse 75 07/16/20 17:51 Resp 18 07/16/20 17:51 BP 155/70 H 07/16/20 17:51 Pulse Ox 96 07/16/20 17:51 Body Mass Index 23.6 Appearance: Alert. Oriented X3. No acute distress. HEENT: normal inspection CVS: Normal heart rate and rhythm. Pulses normal. Respiratory: No respiratory distress. Skin: Skin warm and dry. Normal skin color. Normal skin turgor. No rashes. Extremities: mild left knee swelling, no obvious deformity. swelling behind the knee without palpable mass or lesion. tenderness superiorly with palpable joint effusion above patella. unable to flex knee due to pain. no tibial tuberosity tenderness. no ankle tenderness. pelvis is stable. Left wrist in velcro splint in place with scattered ecchymosis on the hand Neuro: Oriented X 3. No motor deficit. No sensory deficit. Course Course Course Narrative: 75 y/o female presenting with left knee pain after a slip and fall earlier today. Unable to ambulate. XR pending. Reevaluation(s) Reevaluation #1: XR showing non-displaced vertical fracutre distal femur extending to the intra-articular surface with moderate suprapatellar joint effusion. Marielle FORBES tt @ 430 pm - recommending CT scan for further assessment. Reevaluation #2: Signed out to Pushpa JENNINGS who will assume care. CT scan pending. Consultations Consultation #1: Orthopedics - Shi FORBES Discharge Plan Discharge Prescriptions: No Action metformin 500 mg tablet 500 mg PO BID RF: 0 albuterol sulfate [Ventolin HFA] 90 mcg/actuation Hfa Aerosol Inhaler 1 inh INHALATION QID PRN (Reason: Shortness Of Breath) RF: 0 budesonide-formoterol [Symbicort] 160-4.5 mcg/actuation HFA aerosol inhaler 2 puff inhalation BID RF: 0 amoxicillin 500 mg Capsule 500 mg PO Q8H Qty: 6 RF: 0 prednisone 20 mg Tablet 40 mg PO DAILY Qty: 6 RF: 0 hydrocodone-acetaminophen 5-325 mg tablet 1 - 2 tab PO Q6H PRN (Reason: pain) Qty: 20 RF: 0
[2020-07-16] MEDS: oxyCODONE HCl Immed Release 5 MG TABLET PO (17:31)
[2020-07-16] MEDS: Acetaminophen 325 MG TABLET 975 MG PO (17:31)
[2020-07-16 17:51] VITALS: BP 155/70; PULSE 75; RESP 18; O2SAT 96
[2020-07-16 18:00] VITALS: BP 137/60; PULSE 76; RESP 16; TEMP 36.5; O2SAT 95
--- NOTE | 2020-07-16 19:54 | ECG_ITS ---
Test Reason : FALL Blood Pressure : / mmHG Vent. Rate : 089 BPM Atrial Rate : 089 BPM P-R Int : 160 ms QRS Dur : 098 ms QT Int : 402 ms P-R-T Axes : 080 -09 078 degrees QTc Int : 489 ms Sinus rhythm with occasional Premature ventricular complexes and Premature atrial complexes Nonspecific ST and T wave abnormality Prolonged QT Abnormal ECG When compared with ECG of 24-JUN-2020 18:36, Premature atrial complexes are now Present Nonspecific T wave abnormality now evident in Anterior leads Referred By: Pushpa Vargas Electronically Signed By:KATELIN PAULINO
[2020-07-16 20:00] VITALS: BP 123/47; PULSE 66; RESP 15; O2SAT 96
[2020-07-16 20:50] LABS: MANUAL DIFF FLAG NO
[2020-07-16 20:52] LABS: Basophils Percent Auto 0.3 % (0-2); Eosinophils Absolute Auto 0.4 X10*3/uL (0.0-0.4); Eosinophils Percent Auto 3.4 % (0-4); Hematocrit 34.6 % (37-47); Hemoglobin 11.4 g/dl (12.0-16.0); Imm Gran Abs Auto 0.05 X10*3/uL (0.00-0.03); Imm Gran Pct Auto 0.4 % (0.0-0.4); Lymphocytes Absolute Auto 2.9 X10*3/uL (1.2-4.9); Lymphocytes Percent Auto 23.7 % (20-40); Mean Corpuscular HGB Conc 32.9 g/dl (31.0-35.0); Mean Corpuscular Hemoglobin 29.3 pg (27.0-33.0); Mean Corpuscular Volume 88.9 fL (80-98); Mean Platelet Volume 9.7 fL (9.4-12.3); Monocytes Absolute Auto 0.7 X10*3/uL (0.1-1.2); Neutrophils Absolute Auto 8.2 X10*3/uL (2.0-8.3); Neutrophils Percent Auto 66.2 % (45-73); Platelet Count 357 X10*3/uL (160-400); Red Blood Count 3.89 X10*6/uL (4.20-5.50); Red Cell Distribution Width 13.3 % (11.0-16.0); White Blood Count 12.4 X10*3/uL (4.8-10.8)
[2020-07-16 21:12] LABS: Anion Gap 13 (12-20); Blood Urea Nitrogen 9 mg/dL (9-16); Calcium 8.5 mg/dL (8.4-10.2); Carbon Dioxide 24 mmol/L (22-29); Chloride 106 mmol/L (96-108); Creatinine Clr Calc Pharmacy 55.5; Estimated Glomerular Filt Rate > 60; Glucose Random 101 mg/dL (60-115); Potassium 3.8 mmol/L (3.3-5.1); Sodium 139 mmol/L (135-145)
[2020-07-16 21:35] LABS: Troponin-I High Sensitivity 27.6 ng/L (<3.5-17.0)
[2020-07-16 21:51] VITALS: BP 140/74; PULSE 69; RESP 16; TEMP 36.5; O2SAT 92
--- NOTE | 2020-07-16 21:52 | PM.IMHP ---
History of Present Illness Date of Service: 07/16/20 Chief Complaint: Fall and hip fracture This is a 75-year-old female with past medical history of COPD, diabetes who presents to the hospital after experiencing a fall and fracturing her hip. Patient reports that she went out to smoke, tried to go inside her house, held onto the handle of her door, but slipped and had a fall inside her house as she was coming inside and was unable to get up. She is currently complaining of left hip pain do radiating to the back of her knee. She otherwise reports no prior L health, was doing well prior to the fall, although did have a recent fall in June on her left hand and had a fracture of her radius status post plate and screw fixation. She currently has no chest pain, no shortness of breath, in vision, no abdominal pain nausea or vomiting, no diarrhea constipation, no urinary symptoms and no lower extremity edema. No new weakness numbness or tingling. To the ED vitals hemodynamically stable with no significant abnormalities Labs are significant for WBC count of 9.7, hemoglobin of 11.2, otherwise unremarkable. Her troponin is slightly elevated at 27.6 patient is denying any chest pain EKG is showing T-wave abnormalities although no ST depression or elevation. Left knee CT shows nondisplaced fracture of the distal femoral metaphyses oriented in the sagittal plane extending to the intercondylar femoral notch and medial aspect of the lateral femoral condyle articular surface as well as the lateral patellofemoral joint Patient is being admitted with a consult Orthopedic for possible ORIF in a.m. Past medical history: Diabetes, COPD Past surgical history: Hysterectomy Family history: Denies Social history: Comes from home, was walking independent until she broke her wrist and now uses a 5 prong walker, smokes about 4 cigarettes a day, denies alcohol or illicit drugs Review of Systems Review of Systems: Yes all other systems are reviewed and are negative [facility] Medical History (Updated 07/17/20 @ 05:50 by Aurelio Champion MD) Acute and chronic respiratory failure with hypoxia COPD (chronic obstructive pulmonary disease) Diabetes Social History Household Members: Friend(s) Housing: Apartment Do you presently have visiting nurse or other home services: Yes Alcohol intake: unknown Smoking Status: Current every day smoker Cigarettes Per Day: 5 Smoked in Last 30 Days: Yes Patient Interested in Nicotine Replacement: No Patient Given Instructions on How to Stop Smoking: No Second Hand Smoke Exposure: No Use of substances other than those prescribed or required for medical reasons: No Have you been hit, kicked, punched, or otherwise hurt by someone within the past year? If so, by whom?: No Do you feel safe in your current relationship?: No Current Relationship Is there a partner from a previous relationship who is making you feel unsafe now?: No Are you made to feel afraid or neglected: No Advance Directives: No Advance Directives Information Provided: No Do you have thoughts of harming others: None Do you have a plan to hurt others: No Plan Recently lost weight without trying: No service: No Current occupational status: retired [employer] Allergies Allergy/AdvReac Type Severity Reaction Status Date / Time No Known Allergies Allergy Verified 06/24/20 18:03 Home Medications Medication Instructions Recorded Confirmed Last Taken Type albuterol sulfate [Ventolin HFA] 1 inh INHALATION QID PRN 06/24/20 06/24/20 Unknown History budesonide-formoterol [Symbicort] 2 puff INHALATION BID 06/24/20 06/24/20 Unknown History metformin 500 mg PO BID 06/24/20 06/26/20 Unknown History Physical Exam Vital Signs and Narrative: Vital Signs: Last Vital Signs Temp 97.7 F 07/16/20 18:00 Pulse 66 07/16/20 20:00 Resp 15 07/16/20 20:00 BP 123/47 L 07/16/20 20:00 Pulse Ox 96 07/16/20 20:00 Body Mass Index 23.6 Const: General: cooperative and no acute distress Orientation/consciousness: patient oriented x3 Eyes: General: appearance normal, both eyes and all related structures Resp: Effort & Inspection: normal respiratory effort and able to speak in complete sentences Cardio: Rate: regular rate Rhythm: regular rhythm GI: Palpation (GI): Soft to palpation Auscultation: normal bowel sounds Skin: General skin exam: no rashes or lesions noted Neuro: General: patient oriented x3 Cognition (Neuro): normal cognition Extrem: Other: Externally rotated left lower extremity, tenderness throughout the upper aspect of lower leg General: Yes no pedal edema Results Labs CBC and Chem 7: 07/17/20 04:35 07/17/20 04:35 Labs: Laboratory Results - last 24 hr 07/16/20 07/16/20 07/16/20 20:25 20:25 21:00 MCV 88.9 MCH 29.3 MCHC 32.9 RDW 13.3 Plt Count 357 MPV 9.7 Immature Gran % (Auto) 0.4 Neut % (Auto) 66.2 Lymph % (Auto) 23.7 [place] % (Auto) 6.0 Eos % (Auto) 3.4 Baso % (Auto) 0.3 Lymph # (Auto) 2.9 [place] # (Auto) 0.7 Eos # (Auto) 0.4 Baso # (Auto) 0.0 Abs Immat Gran (auto) 0.05 H Absolute Neuts (auto) 8.2 Absolute Nucleated RBC 0.000 Nucleated RBC % (auto) 0.0 Anion Gap 13 Estim Creat Clear Calc 55.5 Estimated GFR > 60 Random Glucose 101 Calcium 8.5 Troponin I High Sens 27.6 H Blood Type 07/16/20 21:25 MCV MCH MCHC RDW Plt Count MPV Immature Gran % (Auto) Neut % (Auto) Lymph % (Auto) [place] % (Auto) Eos % (Auto) Baso % (Auto) Lymph # (Auto) [place] # (Auto) Eos # (Auto) Baso # (Auto) Abs Immat Gran (auto) Absolute Neuts (auto) Absolute Nucleated RBC Nucleated RBC % (auto) Anion Gap Estim Creat Clear Calc Estimated GFR Random Glucose Calcium Troponin I High Sens Blood Type AB Positive Imaging Radiologist's Impressions: Impressions Knee X-Ray 07/16/20 15:51 IMPRESSION: Nondisplaced vertical fracture distal femur extending to the intra-articular surface. Moderate suprapatellar joint effusion. Knee CT 07/16/20 17:10 IMPRESSION: * Nondisplaced fracture of the distal femoral metaphysis oriented in the sagittal plane extending to the intercondylar femoral notch and medial aspect of the lateral femoral condyle articular surface, as well as the lateral patellofemoral joint. * Large lipohemarthrosis. Assessment and Plan (1) Fracture of distal end of femur: Qualifiers: Encounter type: initial encounter Fracture morphology: unspecified fracture morphology Fracture type: closed Laterality: left Qualified Code(s): S72.402A - Unspecified fracture of lower end of left femur, initial encounter for closed fracture Status: Acute This is a 75-year-old female who presents to the hospital after a fall found to have femoral fracture # left femoral fracture - 2/2 mechanical fall - orthopedic consulted - pain is currently controlled - will keep NPO for possible ORIF in a.m. # COPD - no exacerbation - continue home inhalers # diabetes - hold metformin - start low-dose sliding scale insulin DVT prophylaxis: SCDs
[2020-07-16 21:53] LABS: COVID-19 Test Negative (Negative)
[2020-07-17] VITALS (14 sets, daily range): BP systolic 93–183; BP diastolic 55–111; PULSE 65–89; RESP 15–20; TEMP 36.1–36.8; O2SAT 92–100
--- NOTE | 2020-07-17 | ECG_ITS ---
Test Reason : PREOP Blood Pressure : / mmHG Vent. Rate : 073 BPM Atrial Rate : 073 BPM P-R Int : 140 ms QRS Dur : 098 ms QT Int : 410 ms P-R-T Axes : 064 -06 072 degrees QTc Int : 451 ms Sinus rhythm with Premature atrial complexes Nonspecific ST and T wave abnormality Abnormal ECG When compared with ECG of 16-JUL-2020 20:09, Premature ventricular complexes are no longer Present Referred By: Niko Solomon Electronically Signed By:KATELIN PAULINO
[2020-07-17] MEDS: Morphine Sulfate 4 MG/ML CARTRIDGE IVPUSH ×2 (02:15→07:27)
[2020-07-17] MEDS: 0.9 % Sodium Chloride Flush 3 ML SYRINGE IVFLUSH ×5 (02:16→20:46)
[2020-07-17 04:54] LABS: MANUAL DIFF FLAG NO
[2020-07-17 04:57] LABS: Basophils Percent Auto 0.4 % (0-2); Eosinophils Absolute Auto 0.3 X10*3/uL (0.0-0.4); Eosinophils Percent Auto 3.5 % (0-4); Hematocrit 34.9 % (37-47); Hemoglobin 11.2 g/dl (12.0-16.0); Imm Gran Abs Auto 0.03 X10*3/uL (0.00-0.03); Imm Gran Pct Auto 0.3 % (0.0-0.4); Lymphocytes Percent Auto 20.2 % (20-40); Mean Corpuscular HGB Conc 32.1 g/dl (31.0-35.0); Mean Corpuscular Hemoglobin 28.6 pg (27.0-33.0); Mean Corpuscular Volume 89.3 fL (80-98); Mean Platelet Volume 9.8 fL (9.4-12.3); Monocytes Absolute Auto 0.7 X10*3/uL (0.1-1.2); Monocytes Percent Auto 6.7 % (2-11); Neutrophils Absolute Auto 6.7 X10*3/uL (2.0-8.3); Neutrophils Percent Auto 68.9 % (45-73); Platelet Count 347 X10*3/uL (160-400); Red Blood Count 3.91 X10*6/uL (4.20-5.50); Red Cell Distribution Width 13.2 % (11.0-16.0); White Blood Count 9.7 X10*3/uL (4.8-10.8)
[2020-07-17 05:23] LABS: Anion Gap 13 (12-20); Blood Urea Nitrogen 9 mg/dL (9-16); Calcium 8.1 mg/dL (8.4-10.2); Carbon Dioxide 24 mmol/L (22-29); Chloride 106 mmol/L (96-108); Creatinine Clr Calc Pharmacy 52.3; Estimated Glomerular Filt Rate > 60; Glucose Random 111 mg/dL (60-115); Potassium 3.9 mmol/L (3.3-5.1); Sodium 139 mmol/L (135-145)
[2020-07-17 06:45] LABS: Troponin-I High Sensitivity 27.9 ng/L (<3.5-17.0)
[2020-07-17 07:39] LABS: Glucose, Whole Blood 95 mg/dL (60-115)
--- NOTE | 2020-07-17 08:34 | P.CONOP_ITS ---
History of Present Illness HPI Consult date: 07/17/20 Consult reason: fracture Chief complaint: Femoral Fracture Narrative: Ms. Brown is a 75 yo female who presented to the Ed yesterday after coming tripping over the sliding door track on her floor. She states that she was outside having a cigarette and when she came in she tripped, fell, and felt immediate left knee pain. She presented to the ED where they preformed an c-ray and CT scan. She was found to have a distal femur fracture and orthopedics was consulted for further management of care. She states that she lives with a roommate/male friend, uses a cane to ambulate with at baseline, and is not taking any blood thinners. Of note she is s/p left distal radius ORIF with Dr. Barrios from 07/01/20. Review of Systems Review of Systems: Yes all other systems are reviewed and are negative PMFSH Past Medical History Medical History (Updated 07/17/20 @ 05:50 by Aurelio Champion MD) Acute and chronic respiratory failure with hypoxia COPD (chronic obstructive pulmonary disease) Diabetes Social History Social History Household Members: Friend(s) Housing: Apartment Do you presently have visiting nurse or other home services: Yes Alcohol intake: unknown Smoking Status: Current every day smoker Cigarettes Per Day: 5 Smoked in Last 30 Days: Yes Patient Interested in Nicotine Replacement: No Patient Given Instructions on How to Stop Smoking: No Second Hand Smoke Exposure: No Use of substances other than those prescribed or required for medical reasons: No Have you been hit, kicked, punched, or otherwise hurt by someone within the past year? If so, by whom?: No Do you feel safe in your current relationship?: No Current Relationship Is there a partner from a previous relationship who is making you feel unsafe now?: No Are you made to feel afraid or neglected: No Advance Directives: No Advance Directives Information Provided: No Do you have thoughts of harming others: None Do you have a plan to hurt others: No Plan Recently lost weight without trying: No service: No Current occupational status: retired Meds Allergies Allergy/AdvReac Type Severity Reaction Status Date / Time No Known Allergies Allergy Verified 06/24/20 18:03 Active Medications: Current Medications Generic Name Dose Route Start Last Admin Trade Name Freq PRN Reason Stop Dose Admin Acetaminophen 650 mg 07/16/20 21:51 Acetaminophen 325 Mg Tablet PO Q6H PRN Pain, Mild (Pain Scale 1-3) Docusate Sodium 100 mg 07/16/20 21:51 Docusate Sodium 100 Mg Capsule PO DAILY PRN Constipation Dextrose/Sodium Chloride 1,000 mls @ 80 mls/hr 07/17/20 08:45 D51/2ns IVCONT 07/17/20 21:14 .[id number] [facility] Cefazolin Sodium/Dextrose 2 gm in 50 mls @ 100 mls/hr 07/17/20 08:32 Ancef IV 07/17/20 09:01 PREOP ONE Insulin Human Lispro 0 unit 07/17/20 07:30 07/17/20 08:16 Insulin Lispro 100 Unit/Ml 3 Ml Vial SUBCUT Not Given QIDACHS [facility] Protocol Morphine Sulfate 4 mg 07/16/20 21:51 07/17/20 07:27 Morphine Sulfate 4 Mg/Ml Cartridge IVPUSH 4 mg Q4H PRN Administration Pain, Severe (Pain Scale 7-10) Ondansetron HCl 4 mg 07/16/20 21:51 Ondansetron Hcl 4 Mg/2 Ml Vial IVPUSH Q8H PRN Nausea and Vomiting Sodium Chloride 3 ml 07/17/20 00:00 07/17/20 02:16 0.9 % Sodium Chloride Flush 3 Ml Syringe IVFLUSH 3 ml QSHIFT [facility] Administration Home Medications Medication Instructions Recorded Confirmed Last Taken Type albuterol sulfate [Ventolin HFA] 1 inh INHALATION QID PRN 06/24/20 06/24/20 Unknown History budesonide-formoterol [Symbicort] 2 puff INHALATION BID 06/24/20 06/24/20 Unknown History metformin 500 mg PO BID 06/24/20 06/26/20 Unknown History Physical Exam Vital Signs: Vital Signs: Last Vital Signs Temp 97.5 F 07/17/20 07:33 Pulse 70 07/17/20 07:33 Resp 15 07/17/20 07:33 BP 141/73 H 07/17/20 07:33 Pulse Ox 94 07/17/20 07:33 Body Mass Index 23.6 Const: General: cooperative and no acute distress Orientation/consciousness: patient oriented x3 Resp: Effort & Inspection: normal respiratory effort and able to speak in complete sentences Cardio: Peripheral pulses: Peripheral pulses 2+ throughout Skin: General skin exam: no rashes or lesions noted Neuro: General: patient oriented x3 Extrem: Other: left knee skin intact, no ecchymosis, redness, or abrasions. Patient is able to perform a straight leg raise but impaired by pain. Able to dariana and plantar flex at the ankle. Left lower extremity sensation intact. Posterior tibial pulse intact. Results Labs Result Diagrams: 07/17/20 04:35 07/17/20 04:35 Labs: Abnormal lab results 07/16/20 07/16/20 07/17/20 Range/Units 20:25 21:00 04:35 WBC 12.4 H (4.8-10.8) X10*3/uL RBC 3.89 L 3.91 L (4.20-5.50) X10*6/uL Hgb 11.4 L 11.2 L (12.0-16.0) g/dl Hct 34.6 L 34.9 L (37-47) % Abs Immat Gran (auto) 0.05 H (0.00-0.03) X10*3/uL Calcium (8.4-10.2) mg/dL Troponin I High Sens 27.6 H (<3.5-17.0) ng/L 07/17/20 07/17/20 Range/Units 04:35 04:35 WBC (4.8-10.8) X10*3/uL RBC (4.20-5.50) X10*6/uL Hgb (12.0-16.0) g/dl Hct (37-47) % Abs Immat Gran (auto) (0.00-0.03) X10*3/uL Calcium 8.1 L (8.4-10.2) mg/dL Troponin I High Sens 27.9 H (<3.5-17.0) ng/L H & H 07/16/20 07/17/20 Range/Units 20:25 04:35 Hgb 11.4 L 11.2 L (12.0-16.0) g/dl Hct 34.6 L 34.9 L (37-47) % All other labs normal. Assessment and Plan (1) Fracture of distal end of femur: Qualifiers: Encounter type: initial encounter Fracture morphology: unspecified fr acture morphology Fracture type: closed Laterality: left Qualified Code(s): S72.402A - Unspecified fracture of lower end of left femur, initial encounter for closed fracture Status: Acute Patient had an elevated Troponin at 27.9. This has been discussed with Dr. Solomon. He has cleared her medically for surgery as she has shown a history of elevated Troponins in the past. I discussed the case with Dr. Laguna and explained the extent of the injury to the patient and options available which include surgical intervention. I explained the procedure in detail along with the length of recovery and rehab course. I explained the risk, benefits and alternatives. Risk including, but not limited to infection, blood clots, bleeding, non union or malunion and nerve/tissue damage to surrounding areas. I answered all their questions and with their understanding they have consented to move forward with Operative Fixation of the left distal femur. The patient will be T&S, med clearance obtained and NPO after midnight.
--- NOTE | 2020-07-17 09:33 | PM.EVENT ---
Event Note Date of Service: 07/17/20 Event Note: Day Team F/U in brief S Seen and examined this AM no chest pain or sob. denies history of CAD reports hunger otherwise leg pain controlled at this time O vitals - last documented Gen - NAD CVS - S1S2 Lungs - Clear, no distress Neuro - non-focal A/P 75 yo admitted for non-displaced fx of the distal fem. Rpeat EKG this AM unchanged. HS trop-I flat. Denies CAD and no active cardiac complaints reported. Intermediate risk for planned procedure. No further work up required at this time prior to OR. Remainder per admission H&P
[2020-07-17] MEDS: Dextrose 5 % and 0.45 % NaCl 1,000 ML 80 ML IVCONT (09:59)
[2020-07-17 11:02] LABS: Glucose, Whole Blood 94 mg/dL (60-115)
--- NOTE | 2020-07-17 11:21 | HO.ANESPROP2 ---
HPI - Anesthesia Eval Consult details Narrative: 75 F p/f femur fixation. Ongoing troponin leak on labs during the past 3 weeks; denies CP. Has not seen cardiology. Discussed increased risk of periop MT/MACE; lack of benefit from delaying surgery given hx of prior troponinemia and the need to control pain and allow mobilization. Recommend cardiology consultation post-op for optimization of medical management of possible CAD. Patient in agreement with plan. [facility] Active Problems Active Problems: All Active Problems (Updated 07/17/20 @ 05:50 by Aurelio Champion MD) Fracture of distal end of femur (Acute) Acute and chronic respiratory failure with hypoxia (Acute) Distal radius fracture, left (Acute) Falls (Acute) Chronic obstructive pulmonary disease with (acute) exacerbation (Acute) Acute UTI (Acute) Past Medical History Medical History Acute and chronic respiratory failure with hypoxia COPD (chronic obstructive pulmonary disease) Diabetes Social History Social History Household Members: Friend(s) Housing: Apartment Do you presently have visiting nurse or other home services: Yes Alcohol intake: unknown Smoking Status: Current every day smoker Cigarettes Per Day: 5 Smoked in Last 30 Days: Yes Patient Interested in Nicotine Replacement: No Patient Given Instructions on How to Stop Smoking: No Second Hand Smoke Exposure: No Use of substances other than those prescribed or required for medical reasons: No Have you been hit, kicked, punched, or otherwise hurt by someone within the past year? If so, by whom?: No Do you feel safe in your current relationship?: No Current Relationship Is there a partner from a previous relationship who is making you feel unsafe now?: No Are you made to feel afraid or neglected: No Advance Directives: No Advance Directives Information Provided: No Do you have thoughts of harming others: None Do you have a plan to hurt others: No Plan Recently lost weight without trying: No service: No Current occupational status: retired Meds Allergies Allergy/AdvReac Type Severity Reaction Status Date / Time No Known Allergies Allergy Verified 06/24/20 18:03 Active Medications: Current Medications Generic Name Dose Route Start Last Admin Trade Name Freq PRN Reason Stop Dose Admin Acetaminophen 650 mg 07/16/20 21:51 Acetaminophen 325 Mg Tablet PO Q6H PRN Pain, Mild (Pain Scale 1-3) Docusate Sodium 100 mg 07/16/20 21:51 Docusate Sodium 100 Mg Capsule PO DAILY PRN Constipation Dextrose/Sodium Chloride 1,000 mls @ 80 mls/hr 07/17/20 08:45 07/17/20 09:59 D51/2ns IVCONT 07/17/20 21:14 80 mls/hr .[id number] NAYELI Administration Insulin Human Lispro 0 unit 07/17/20 07:30 07/17/20 08:16 Insulin Lispro 100 Unit/Ml 3 Ml Vial SUBCUT Not Given QIDACHS [facility] Protocol Morphine Sulfate 4 mg 07/16/20 21:51 07/17/20 07:27 Morphine Sulfate 4 Mg/Ml Cartridge IVPUSH 4 mg Q4H PRN Administration Pain, Severe (Pain Scale 7-10) Ondansetron HCl 4 mg 07/16/20 21:51 Ondansetron Hcl 4 Mg/2 Ml Vial IVPUSH Q8H PRN Nausea and Vomiting Sodium Chloride 3 ml 07/17/20 00:00 07/17/20 09:11 0.9 % Sodium Chloride Flush 3 Ml Syringe IVFLUSH 3 ml QSHIFT [facility] Administration Home Medications Medication Instructions Recorded Confirmed Last Taken Type albuterol sulfate [Ventolin HFA] 1 inh INHALATION QID PRN 06/24/20 06/24/20 Unknown History budesonide-formoterol [Symbicort] 2 puff INHALATION BID 06/24/20 06/24/20 Unknown History metformin 500 mg PO BID 06/24/20 06/26/20 Unknown History Exam Exam Date and Time: July 17, 2020 1121 Height,Weight and Vital Signs: Height 5 ft 1 in Weight 56.699 kg Last Vital Signs Temp 97.5 F 07/17/20 07:33 Pulse 70 07/17/20 07:33 Resp 15 07/17/20 07:33 BP 141/73 H 07/17/20 07:33 Pulse Ox 94 07/17/20 07:33 Pertinent Lab Results Pertinent Lab Results: Laboratory Tests 07/16/20 07/16/20 07/16/20 20:25 20:25 21:00 WBC 12.4 H RBC 3.89 L Hgb 11.4 L Hct 34.6 L MCV 88.9 MCH 29.3 MCHC 32.9 RDW 13.3 Plt Count 357 MPV 9.7 Immature Gran % (Auto) 0.4 Neut % (Auto) 66.2 Lymph % (Auto) 23.7 [place] % (Auto) 6.0 Eos % (Auto) 3.4 Baso % (Auto) 0.3 Lymph # (Auto) 2.9 [place] # (Auto) 0.7 Eos # (Auto) 0.4 Baso # (Auto) 0.0 Abs Immat Gran (auto) 0.05 H Absolute Neuts (auto) 8.2 Absolute Nucleated RBC 0.000 Nucleated RBC % (auto) 0.0 Sodium 139 Potassium 3.8 Chloride 106 Carbon Dioxide 24 Anion Gap 13 BUN 9 Creatinine 0.65 Estim Creat Clear Calc 55.5 Estimated GFR > 60 POC Glucose Random Glucose 101 Calcium 8.5 Troponin I High Sens 27.6 H COVID-19 ([facility]) COVID-19 Clin Com Blood Type Antibody Screen 07/16/20 07/16/20 07/17/20 21:25 21:34 04:35 WBC 9.7 RBC 3.91 L Hgb 11.2 L Hct 34.9 L MCV 89.3 MCH 28.6 MCHC 32.1 RDW 13.2 Plt Count 347 MPV 9.8 Immature Gran % (Auto) 0.3 Neut % (Auto) 68.9 Lymph % (Auto) 20.2 [place] % (Auto) 6.7 Eos % (Auto) 3.5 Baso % (Auto) 0.4 Lymph # (Auto) 2.0 [place] # (Auto) 0.7 Eos # (Auto) 0.3 Baso # (Auto) 0.0 Abs Immat Gran (auto) 0.03 Absolute Neuts (auto) 6.7 Absolute Nucleated RBC 0.000 Nucleated RBC % (auto) 0.0 Sodium Potassium Chloride Carbon Dioxide Anion Gap BUN Creatinine Estim Creat Clear Calc Estimated GFR POC Glucose Random Glucose Calcium Troponin I High Sens COVID-19 ([facility]) Negative COVID-19 Clin Com See Note Blood Type AB Positive Antibody Screen NEGATIVE 07/17/20 07/17/20 07/17/20 04:35 04:35 07:32 WBC RBC Hgb Hct MCV MCH MCHC RDW Plt Count MPV Immature Gran % (Auto) Neut % (Auto) Lymph % (Auto) [place] % (Auto) Eos % (Auto) Baso % (Auto) Lymph # (Auto) [place] # (Auto) Eos # (Auto) Baso # (Auto) Abs Immat Gran (auto) Absolute Neuts (auto) Absolute Nucleated RBC Nucleated RBC % (auto) Sodium 139 Potassium 3.9 Chloride 106 Carbon Dioxide 24 Anion Gap 13 BUN 9 Creatinine 0.69 Estim Creat Clear Calc 52.3 Estimated GFR > 60 POC Glucose 95 Random Glucose 111 Calcium 8.1 L Troponin I High Sens 27.9 H COVID-19 ([facility]) COVID-19 [facility] Com Blood Type Antibody Screen 07/17/20 10:58 WBC RBC Hgb Hct MCV MCH MCHC RDW Plt Count MPV Immature Gran % (Auto) Neut % (Auto) Lymph % (Auto) [place] % (Auto) Eos % (Auto) Baso % (Auto) Lymph # (Auto) [place] # (Auto) Eos # (Auto) Baso # (Auto) Abs Immat Gran (auto) Absolute Neuts (auto) Absolute Nucleated RBC Nucleated RBC % (auto) Sodium Potassium Chloride Carbon Dioxide Anion Gap BUN Creatinine Estim Creat Clear Calc Estimated GFR POC Glucose 94 Random Glucose Calcium Troponin I High Sens COVID-19 ([facility]) COVID-19 [facility] Com Blood Type Antibody Screen Airway Denture: Upper and Lower Heart: RRR Lungs: NL Assessment and Plan Assessment Anesthesia Assessment: Anesthesia Plan Discussed (Increased risk of periop MACE due to troponinemia; plan to proceed w/ caution; patient agrees) Final Anesthetic Review NPO: Yes ASA Class: IV Final Preanesthetic Review: No Changes in Pt Med Stat, Meds/Allgs Chart Reviewed, Consent Obtained/Reviewed and Anes Risks/Benef Reviewed Patient Risk: High Procedure Risk: Intermediate Anesthetic Plan Anesthetic Plan: GA Disposition: Standard PACU
[2020-07-17] MEDS: oxyCODONE HCl Immed Release 5 MG TABLET 10 MG PO (13:50)
--- NOTE | 2020-07-17 14:29 | MHC.CM.PN ---
spoke with kellee with whom she lives he explins pt was dcd from [facility] 2/3 she went home with [facility] he was unsure of agencey he agrees that pt will need rehab [facility] [place] [facility]
[2020-07-17 16:43] LABS: Glucose, Whole Blood 134 mg/dL (60-115)
[2020-07-17] MEDS: ceFAZolin Sodium/Dextrose,Iso 2 GM/50 ML PIGGYBACK IV (18:12)
[2020-07-17 20:29] LABS: Glucose, Whole Blood 200 mg/dL (60-115)
[2020-07-17] MEDS: oxyCODONE HCl ER 10 MG TAB.ER.12H PO (20:44)
[2020-07-17] MEDS: Insulin Lispro 100 UNIT/ML 3 ML VIAL SUBCUT (20:44)
[2020-07-18 03:37] VITALS: BP 131/52; PULSE 78; RESP 19; TEMP 36.7; O2SAT 93
[2020-07-18] MEDS: HYDROmorphone HCl 0.5 MG/0.5 ML SYRINGE 0.25 MG IVPUSH (04:18)
[2020-07-18 06:18] LABS: Hematocrit 33.1 % (37-47); Hemoglobin 10.7 g/dl (12.0-16.0); Mean Corpuscular HGB Conc 32.3 g/dl (31.0-35.0); Mean Corpuscular Hemoglobin 28.5 pg (27.0-33.0); Mean Platelet Volume 9.7 fL (9.4-12.3); Platelet Count 353 X10*3/uL (160-400); Red Blood Count 3.76 X10*6/uL (4.20-5.50); White Blood Count 13.1 X10*3/uL (4.8-10.8)
--- NOTE | 2020-07-18 06:45 | HO.POSTANES ---
Post Anesthesia Evaluation Post Anesthesia Evaluation Vital Signs: Vital Signs Temp Pulse Resp BP Pulse Ox 07/18/20 03:37 98.0 F 78 19 131/52 L 93 07/17/20 22:56 97.6 F 65 19 92 07/17/20 19:22 97.0 F 69 18 93/63 95 Anesthesia: General Mental Status: Awake Pain Control: Satisfactory Nausea/Vomiting: None Hydration: Adequate Anesthesia-Related Issues: No Anes. Related Issues
[2020-07-18 07:24] VITALS: BP 124/55; PULSE 63; RESP 17; TEMP 36.4; O2SAT 92
--- NOTE | 2020-07-18 07:27 | PM.PNORT ---
Subjective Subjective Date of Service: 07/18/20 Interval history: POD1 s/p left distal femur orif. Pt. is resting comfortably in bed. No overnight events. Denies SOB, chest pain, abd pain. Physical Exam Vital Signs: Vital Signs: Last Vital Signs Temp 98.0 F 07/18/20 03:37 Pulse 78 07/18/20 03:37 Resp 19 07/18/20 03:37 BP 131/52 L 07/18/20 03:37 Pulse Ox 93 07/18/20 03:37 Body Mass Index 23.6 Const: General: cooperative, healthy appearing and no acute distress Resp: Effort & Inspection: normal respiratory effort and able to speak in complete sentences Cardio: Rate: regular rate Peripheral pulses: Peripheral pulses 2+ throughout GI: Palpation (GI): Soft to palpation Skin: Lesions: no lesions Rashes: no rashes Extrem: Other: left distal femur no ecchymosis, redness, or drainage. Bandage is clean dry and intact. NVI. Progress Note: A&P Assessment and plan (1) Fracture of distal end of femur: Status: Acute Assessment and Plan: Continue pain mgmnt Begin Lovenox for dvt ppx begin PT and OT for lt distal femur ORIF Dispo planning-Pending PT eval, pain mgmnt Fall Risk Details Current Medications: Current Medications Generic Name Dose Route Start Last Admin Trade Name Freq PRN Reason Stop Dose Admin Acetaminophen 650 mg 07/16/20 21:51 Acetaminophen 325 Mg Tablet PO Q6H PRN Pain, Mild (Pain Scale 1-3) Docusate Sodium 100 mg 07/16/20 21:51 Docusate Sodium 100 Mg Capsule PO DAILY PRN Constipation Hydromorphone HCl 0.25 mg 07/17/20 12:03 07/18/20 04:18 Hydromorphone Hcl 0.5 Mg/0.5 Ml Syringe IVPUSH 0.25 mg Q4H PRN Administration Pain, Severe (Pain Scale 7-10) Insulin Human Lispro 0 unit 07/17/20 07:30 07/17/20 20:44 Insulin Lispro 100 Unit/Ml 3 Ml Vial SUBCUT 2 unit QIDACHS NAYELI Administration Protocol Ondansetron HCl 4 mg 07/16/20 21:51 Ondansetron Hcl 4 Mg/2 Ml Vial IVPUSH Q8H PRN Nausea and Vomiting Oxycodone HCl 10 mg 07/17/20 21:00 07/17/20 20:44 Oxycodone Hcl Er 10 Mg Tab.Er.12h PO 10 mg BID NAYELI Administration Oxycodone HCl 10 mg 07/17/20 12:03 07/17/20 13:50 Oxycodone Hcl Immed Release 5 Mg Tablet PO 10 mg Q6H PRN Administration Pain, Moderate (Pain Scale 4-6 Sodium Chloride 3 ml 07/17/20 00:00 07/17/20 20:46 0.9 % Sodium Chloride Flush 3 Ml Syringe IVFLUSH 3 ml QSHIFT NAYELI Administration Time Spent With Patient Time: Total time spent is greater than 50% in coordination of care (as documented) at patient's floor/unit and/or counseling patient: Time with patient: less than 15 minutes
[2020-07-18] MEDS: oxyCODONE HCl Immed Release 5 MG TABLET 10 MG PO (07:43)
[2020-07-18] MEDS: Enoxaparin Sodium 40 MG/0.4 ML SYRINGE SUBCUT (07:43)
[2020-07-18 07:48] LABS: Glucose, Whole Blood 108 mg/dL (60-115)
[2020-07-18 08:13] LABS: Anion Gap 12 (12-20); Blood Urea Nitrogen 8 mg/dL (9-16); Calcium 8.3 mg/dL (8.4-10.2); Carbon Dioxide 26 mmol/L (22-29); Chloride 104 mmol/L (96-108); Creatinine Clr Calc Pharmacy 57.3; Estimated Glomerular Filt Rate > 60; Glucose Random 113 mg/dL (60-115); Potassium 4.3 mmol/L (3.3-5.1); Sodium 138 mmol/L (135-145)
[2020-07-18] MEDS: oxyCODONE HCl ER 10 MG TAB.ER.12H PO ×2 (09:30→20:47)
--- NOTE | 2020-07-18 10:45 | HO.PM.IMPN ---
Subjective Subjective Date of Service: 07/18/20 Interval History: seen and examined this AM reports her leg pain is tolerable requesting that I speak with her Abdi (grandson) @ [phone] re: her dispo ROS General - no fevers or chills Cardiovascular - no chest pain Respiratory - no shortness of breath or cough Abdominal- no abdominal pain, nausea, vomiting, diarrhea Physical Exam Vital Signs: Vital Signs: Last Vital Signs Temp 97.5 F 07/18/20 07:24 Pulse 63 07/18/20 07:24 Resp 17 07/18/20 07:24 BP 124/55 L 07/18/20 07:24 Pulse Ox 92 07/18/20 07:24 Body Mass Index 23.6 Const: General: cooperative and no acute distress Orientation/consciousness: patient oriented x3 Eyes: General: appearance normal, both eyes and all related structures Resp: Effort & Inspection: normal respiratory effort and able to speak in complete sentences Cardio: Rate: regular rate Rhythm: regular rhythm GI: Palpation (GI): Soft to palpation Auscultation: normal bowel sounds Skin: General skin exam: no rashes or lesions noted Neuro: General: patient oriented x3 Cognition (Neuro): normal cognition Extrem: General: Yes no pedal edema Objective Data Current Medications Generic Name Dose Route Start Last Admin Trade Name Freq PRN Reason Stop Dose Admin Acetaminophen 650 mg 07/16/20 21:51 Acetaminophen 325 Mg Tablet PO Q6H PRN Pain, Mild (Pain Scale 1-3) Docusate Sodium 100 mg 07/16/20 21:51 Docusate Sodium 100 Mg Capsule PO DAILY PRN Constipation Enoxaparin Sodium 40 mg 07/18/20 08:00 07/18/20 07:43 Enoxaparin Sodium 40 Mg/0.4 Ml Syringe SUBCUT 40 mg Q24H NAYELI Administration Hydromorphone HCl 0.25 mg 07/17/20 12:03 07/18/20 04:18 Hydromorphone Hcl 0.5 Mg/0.5 Ml Syringe IVPUSH 0.25 mg Q4H PRN Administration Pain, Severe (Pain Scale 7-10) Insulin Human Lispro 0 unit 07/17/20 07:30 07/18/20 08:17 Insulin Lispro 100 Unit/Ml 3 Ml Vial SUBCUT Not Given QIDACHS NAYELI Protocol Ondansetron HCl 4 mg 07/16/20 21:51 Ondansetron Hcl 4 Mg/2 Ml Vial IVPUSH Q8H PRN Nausea and Vomiting Oxycodone HCl 10 mg 07/17/20 21:00 07/18/20 09:30 Oxycodone Hcl Er 10 Mg Tab.Er.12h PO 10 mg BID NAYELI Administration Oxycodone HCl 10 mg 07/17/20 12:03 07/18/20 07:43 Oxycodone Hcl Immed Release 5 Mg Tablet PO 10 mg Q6H PRN Administration Pain, Moderate (Pain Scale 4-6 Sodium Chloride 3 ml 07/17/20 00:00 07/17/20 20:46 0.9 % Sodium Chloride Flush 3 Ml Syringe IVFLUSH 3 ml QSHIFT NAYELI Administration Labs CBC & Chem 7: 07/18/20 06:03 07/18/20 06:03 Assessment and Plan (1) Fracture of distal end of femur: Status: Acute Assessment and Plan: This is a 75-year-old female who presents to the hospital after a fall found to have femoral fracture 1. Left femoral Fx s/p ORIF -- POD #1 DVT/Pain mgmt per ortho recommendations PT/OT -- will need STR 2. COPD no exacerbation continue home inhalers 3. Diabetes sliding scale diabetic diet 4. Leukocytosis reactive, no evidence of infection at this time Full Code DVT pptx, lovenox
[2020-07-18 11:31] VITALS: BP 147/68; PULSE 56; RESP 16; TEMP 36.5; O2SAT 91
[2020-07-18 11:48] LABS: Glucose, Whole Blood 118 mg/dL (60-115)
--- NOTE | 2020-07-18 11:49 | MHC.CM.PN ---
Addendum entered by Belia Michelle 07/18/20 11:54: PATIEN ACTIVE WITH [facility] ACCORDING TO [facility] LIAISON. REFERRAL PLACED TO AGENCY. Original Note: THIS CIRCULATION ASSISTANT SPOKE WITH PATIENT WHO UNDERSTANDS THAT CASE MANAGEMENT CAN WORK ON GETTING A LOCAL REHAB PLACEMENT. FOLLOWING A REHAB STAY, PATIENT CAN THEN WORK ON MOVING TO [place] WITH HER GRANDSON. PATIENT VERBALIZES COMPREHENSION. SHE ASKS IF SHE CAN GO HOME WITH [facility] RATHER THAN SNF PLACEMENT. REFERRAL PLACED TO [facility], ALTHOUGH SHE IS [place] THAT STR IS RECOMMENDED. CASE MANAGEMENT FOLLOWING. CURRENTLY CHOICES ARE [facility] [place] [facility]US [facility]
[2020-07-18 15:04] VITALS: BP 126/47; PULSE 63; RESP 18; TEMP 36.3; O2SAT 92
[2020-07-18] MEDS: 0.9 % Sodium Chloride Flush 3 ML SYRINGE IVFLUSH ×2 (16:14→20:47)
[2020-07-18 16:22] LABS: Glucose, Whole Blood 122 mg/dL (60-115)
[2020-07-18 19:18] VITALS: BP 131/53; PULSE 76; RESP 16; TEMP 36.1; O2SAT 90
[2020-07-18 20:28] LABS: Glucose, Whole Blood 138 mg/dL (60-115)
[2020-07-18 23:55] VITALS: BP 132/54; PULSE 68; RESP 18; TEMP 36.6; O2SAT 91
[2020-07-19] VITALS (7 sets, daily range): BP systolic 118–158; BP diastolic 58–86; PULSE 65–76; RESP 14–18; TEMP 36.4–37.3; O2SAT 90–94
[2020-07-19 08:11] LABS: Hematocrit 33.8 % (37-47); Hemoglobin 10.7 g/dl (12.0-16.0)
--- NOTE | 2020-07-19 08:15 | PM.PNORT ---
Subjective Subjective Date of Service: 07/19/20 Interval history: POD2 s/p left distal femur ORIF. Pt. is resting comfortably in bed. No overnight events. Denies SOB, chest pain, abd pain. Physical Exam Vital Signs: Vital Signs: Last Vital Signs Temp 99.2 F 07/19/20 08:00 Pulse 65 07/19/20 08:00 Resp 18 07/19/20 08:00 BP 118/59 L 07/19/20 08:00 Pulse Ox 90 L 07/19/20 08:00 Body Mass Index 23.6 Const: General: cooperative, healthy appearing and no acute distress Resp: Effort & Inspection: normal respiratory effort and able to speak in complete sentences Cardio: Rate: regular rate Peripheral pulses: Peripheral pulses 2+ throughout GI: Palpation (GI): Soft to palpation Skin: Lesions: no lesions Rashes: no rashes Extrem: Other: left knee no ecchymosis, redness, or drainage. Bandage is clean dry and intact. NVI. Progress Note: A&P Assessment and plan (1) Fracture of distal end of femur: Status: Acute Assessment and Plan: Continue pain mgmnt Continue dvt ppx Continue PT for left distal femur ORIF Dispo planning-Pending PT eval, pain mgmnt Fall Risk Details Current Medications: Current Medications Generic Name Dose Route Start Last Admin Trade Name Freq PRN Reason Stop Dose Admin Acetaminophen 650 mg 07/16/20 21:51 Acetaminophen 325 Mg Tablet PO Q6H PRN Pain, Mild (Pain Scale 1-3) Docusate Sodium 100 mg 07/16/20 21:51 Docusate Sodium 100 Mg Capsule PO DAILY PRN Constipation Enoxaparin Sodium 40 mg 07/18/20 08:00 07/18/20 07:43 Enoxaparin Sodium 40 Mg/0.4 Ml Syringe SUBCUT 40 mg Q24H NAYELI Administration Hydromorphone HCl 0.25 mg 07/17/20 12:03 07/18/20 04:18 Hydromorphone Hcl 0.5 Mg/0.5 Ml Syringe IVPUSH 0.25 mg Q4H PRN Administration Pain, Severe (Pain Scale 7-10) Insulin Human Lispro 0 unit 07/17/20 07:30 07/18/20 20:55 Insulin Lispro 100 Unit/Ml 3 Ml Vial SUBCUT Not Given QIDACHS [facility] Protocol Ondansetron HCl 4 mg 07/16/20 21:51 Ondansetron Hcl 4 Mg/2 Ml Vial IVPUSH Q8H PRN Nausea and Vomiting Oxycodone HCl 10 mg 07/17/20 21:00 07/18/20 20:47 Oxycodone Hcl Er 10 Mg Tab.Er.12h PO 10 mg BID NAYELI Administration Oxycodone HCl 10 mg 07/17/20 12:03 07/18/20 07:43 Oxycodone Hcl Immed Release 5 Mg Tablet PO 10 mg Q6H PRN Administration Pain, Moderate (Pain Scale 4-6 Sodium Chloride 3 ml 07/17/20 00:00 07/18/20 20:47 0.9 % Sodium Chloride Flush 3 Ml Syringe IVFLUSH 3 ml QSHIFT NAYELI Administration Time Spent With Patient Time: Total time spent is greater than 50% in coordination of care (as documented) at patient's floor/unit and/or counseling patient: Time with patient: less than 15 minutes
[2020-07-19 08:33] LABS: Glucose, Whole Blood 130 mg/dL (60-115)
[2020-07-19] MEDS: Enoxaparin Sodium 40 MG/0.4 ML SYRINGE SUBCUT (09:11)
[2020-07-19] MEDS: oxyCODONE HCl ER 10 MG TAB.ER.12H PO ×2 (09:11→21:48)
[2020-07-19] MEDS: 0.9 % Sodium Chloride Flush 3 ML SYRINGE IVFLUSH ×2 (09:11→17:41)
--- NOTE | 2020-07-19 09:50 | HO.PM.IMPN ---
Subjective Subjective Date of Service: 07/19/20 Interval History: seen and examined this AM reports leg pain slightly better and doesnt hurt without movement denies chest pain / sob ROS General - no fevers or chills Cardiovascular - no chest pain Respiratory - no shortness of breath or cough Abdominal- no abdominal pain, nausea, vomiting, diarrhea Physical Exam Vital Signs: Vital Signs: Last Vital Signs Temp 99.2 F 07/19/20 08:00 Pulse 65 07/19/20 08:00 Resp 18 07/19/20 08:00 BP 118/59 L 07/19/20 08:00 Pulse Ox 90 L 07/19/20 08:00 Body Mass Index 23.6 Const: General: cooperative and no acute distress Orientation/consciousness: patient oriented x3 Eyes: General: appearance normal, both eyes and all related structures Resp: Effort & Inspection: normal respiratory effort and able to speak in complete sentences Cardio: Rate: regular rate Rhythm: regular rhythm GI: Palpation (GI): Soft to palpation Auscultation: normal bowel sounds Skin: General skin exam: no rashes or lesions noted Neuro: General: patient oriented x3 Cognition (Neuro): normal cognition Extrem: General: Yes no pedal edema Objective Data Current Medications Generic Name Dose Route Start Last Admin Trade Name Freq PRN Reason Stop Dose Admin Acetaminophen 650 mg 07/16/20 21:51 Acetaminophen 325 Mg Tablet PO Q6H PRN Pain, Mild (Pain Scale 1-3) Docusate Sodium 100 mg 07/16/20 21:51 Docusate Sodium 100 Mg Capsule PO DAILY PRN Constipation Enoxaparin Sodium 40 mg 07/18/20 08:00 07/19/20 09:11 Enoxaparin Sodium 40 Mg/0.4 Ml Syringe SUBCUT 40 mg Q24H NAYELI Administration Hydromorphone HCl 0.25 mg 07/17/20 12:03 07/18/20 04:18 Hydromorphone Hcl 0.5 Mg/0.5 Ml Syringe IVPUSH 0.25 mg Q4H PRN Administration Pain, Severe (Pain Scale 7-10) Insulin Human Lispro 0 unit 07/17/20 07:30 07/19/20 08:40 Insulin Lispro 100 Unit/Ml 3 Ml Vial SUBCUT Not Given QIDACHS [facility] Protocol Ondansetron HCl 4 mg 07/16/20 21:51 Ondansetron Hcl 4 Mg/2 Ml Vial IVPUSH Q8H PRN Nausea and Vomiting Oxycodone HCl 10 mg 07/17/20 21:00 07/19/20 09:11 Oxycodone Hcl Er 10 Mg Tab.Er.12h PO 10 mg BID NAYELI Administration Oxycodone HCl 10 mg 07/17/20 12:03 07/18/20 07:43 Oxycodone Hcl Immed Release 5 Mg Tablet PO 10 mg Q6H PRN Administration Pain, Moderate (Pain Scale 4-6 Sodium Chloride 3 ml 07/17/20 00:00 07/19/20 09:11 0.9 % Sodium Chloride Flush 3 Ml Syringe IVFLUSH 3 ml QSHIFT NAYELI Administration Labs CBC & Chem 7: 07/19/20 07:35 07/18/20 06:03 Assessment and Plan (1) Fracture of distal end of femur: Status: Acute Assessment and Plan: This is a 75-year-old female who presents to the hospital after a fall found to have femoral fracture 1. Left femoral Fx s/p ORIF -- POD #2 DVT/Pain mgmt per ortho recommendations. PT/OT -- will need STR 2. COPD no exacerbation continue home inhalers 3. Diabetes sliding scale diabetic diet 4. Leukocytosis reactive, no evidence of infection at this time Full Code DVT pptx, lovenox dispo: anticipate will need STR. Medically stable, d/c to STR when okay with orthopedics.
[2020-07-19 12:10] LABS: Glucose, Whole Blood 112 mg/dL (60-115)
--- NOTE | 2020-07-19 12:27 | MHC.CM.PN ---
PER CONVERSATION WITH PATIENT, SHE AGREES TO GO TO SHORT TERM REHAB AND CHOOSES [facility]. SHE REPORTS THAT ON THE , SHE IS DUE FOR HER SECOND COVID VACCINATION AT THE FACILITY. SHE WILL NEED A COVID SWAB PRIOR TO DC. FACILITY IS ATTEMPTING AUTH AND CAN OFFER TOMORROW PENDING RECEIPT
--- NOTE | 2020-07-19 12:43 | P.BOP_ITS ---
Brief Operative Note Date of Service: 07/17/20 Pre-op diagnosis: left distal femur fracture Post-op diagnosis: same Procedure: ORIF left distal Femur Implants: 8.0 cannulated screws x 2 Surgeon: Miko Laguna MD Anesthesia: GETA Stitcher Set Up Operator Automatic: Shi Conte Estimated blood loss (mL): 25 IV fluids (mL): 500 Pathology: none sent Condition: stable Disposition: PACU
--- NOTE | 2020-07-19 12:43 | MHC.SHP ---
Pre-Procedural Eval Section A The patient is an INPATIENT: Yes Changes since office visit: Yes Patient answered all questions; No Cold of Flu in the past 2 weeks, No New Medical Problems and No Changes in Medication The History & Physical has been completed within 30 days and I have reviewed it.: Yes Section B Chief Complaint: Femoral Fracture Allergies: Allergies Allergy/AdvReac Type Severity Reaction Status Date / Time No Known Allergies Allergy Verified 06/24/20 18:03 Plan I have reviewed the history and physical and performed a pertinent physical examination on my patient. No changes have occurred unless specified.
[2020-07-19 16:50] LABS: Glucose, Whole Blood 115 mg/dL (60-115)
--- NOTE | 2020-07-19 18:22 | OP_ITS ---
SURGEON: Miko Laguna MD INDICATIONS: This is a 75-year-old woman who fell and presented with a nondisplaced distal femur fracture. She had a large hemarthrosis and was admitted to the hospital. After discussion with the patient, we elected to perform ORIF. PREOPERATIVE DIAGNOSIS: Left distal femur fracture. POSTOPERATIVE DIAGNOSIS: Left distal femur fracture. PROCEDURE PERFORMED: ORIF, left distal femur fracture. ESTIMATED BLOOD LOSS: 25 mL. COMPLICATIONS: None known. ANESTHESIA: General. ASSISTANTS: SPECIMENS: FLUIDS: 500. PROCEDURE IN DETAIL: The patient was brought to the operating room, placed supine on the operative table and prepped and draped in standard sterile fashion. Time-out was called to identify proper site, proper procedure, proper surgeon. IV antibiotics per weight was administered. I began by making a stab incision at the level of the lateral femoral condyle. This was a sagittal split of the condyles without displacement and so 2 guidewires were placed, through both the medial and lateral condyle. I then over drilled and measured and placed 2 8.0 partially threaded cannulated screws from lateral to medial and making sure it is in biplanar fluoroscopy that the screws were intraosseous in all positions. Once I was happy with the x-rays and the position of the hardware, all instrumentation was removed. Copious irrigation was performed and a layered closure was performed with jude on skin. The patient was then extubated, awakened from anesthesia, brought to recovery room in stable condition. There were no known complications. She will be toe-touch weightbearing for 6 weeks. ELECTROMECHANICAL EQUIPMENT ASSEMBLER: Dg Thorne. MD CLAUDINE Campa/JESS / [id number]
[2020-07-19 21:20] LABS: Glucose, Whole Blood 116 mg/dL (60-115)
[2020-07-20 03:59] VITALS: BP 164/78; PULSE 66; RESP 16; TEMP 36.6; O2SAT 94
[2020-07-20 07:36] VITALS: BP 143/66; PULSE 70; RESP 16; TEMP 36.6; O2SAT 91
[2020-07-20 08:06] LABS: Glucose, Whole Blood 118 mg/dL (60-115)
[2020-07-20] MEDS: oxyCODONE HCl ER 10 MG TAB.ER.12H PO ×2 (09:08→21:56)
[2020-07-20] MEDS: Enoxaparin Sodium 40 MG/0.4 ML SYRINGE SUBCUT (09:08)
[2020-07-20] MEDS: 0.9 % Sodium Chloride Flush 3 ML SYRINGE IVFLUSH ×3 (09:09→15:36)
--- NOTE | 2020-07-20 09:52 | MHC.CM.PN ---
[facility] IS UNABLE TO OBTAIN AUTH OVER THE WEEKEND FOR ADMISSION TO FACILITY. HOSPITALIST AWARE
--- NOTE | 2020-07-20 10:00 | PM.PNORT ---
Subjective Subjective Date of Service: 07/20/20 Principal diagnosis: femur fx Interval history: POD 3 s/p femur fx no overnight events, she is resting in chair, states she is doing better today than yesterday, denies sob, cp, palpitations. Physical Exam Vital Signs: Vital Signs: Last Vital Signs Temp 97.8 F 07/20/20 07:36 Pulse 70 07/20/20 07:36 Resp 16 07/20/20 07:36 BP 143/66 H 07/20/20 07:36 Pulse Ox 91 L 07/20/20 07:36 Body Mass Index 23.6 Const: General: cooperative, healthy appearing and no acute distress Resp: Effort & Inspection: normal respiratory effort and able to speak in complete sentences Cardio: Rate: regular rate Peripheral pulses: Peripheral pulses 2+ throughout GI: Palpation (GI): Soft to palpation Skin: General skin exam: no rashes or lesions noted Extrem: Other: incision c.d.i, no erythema, mild edema, sensation intact. Progress Note: A&P Assessment and plan (1) Fracture of distal end of femur: Status: Acute Assessment and Plan: Continue pain mgmnt cont dvt ppx continue PT Dispo planning-Pending PT eval, pain mgmnt Fall Risk Details Current Medications: Current Medications Generic Name Dose Route Start Last Admin Trade Name Freq PRN Reason Stop Dose Admin Acetaminophen 650 mg 07/16/20 21:51 Acetaminophen 325 Mg Tablet PO Q6H PRN Pain, Mild (Pain Scale 1-3) Docusate Sodium 100 mg 07/16/20 21:51 Docusate Sodium 100 Mg Capsule PO DAILY PRN Constipation Enoxaparin Sodium 40 mg 07/18/20 08:00 07/20/20 09:08 Enoxaparin Sodium 40 Mg/0.4 Ml Syringe SUBCUT 40 mg Q24H NAYELI Administration Hydromorphone HCl 0.25 mg 07/17/20 12:03 07/18/20 04:18 Hydromorphone Hcl 0.5 Mg/0.5 Ml Syringe IVPUSH 0.25 mg Q4H PRN Administration Pain, Severe (Pain Scale 7-10) Insulin Human Lispro 0 unit 07/17/20 07:30 07/20/20 09:09 Insulin Lispro 100 Unit/Ml 3 Ml Vial SUBCUT Not Given QIDACHS NAYELI Protocol Ondansetron HCl 4 mg 07/16/20 21:51 Ondansetron Hcl 4 Mg/2 Ml Vial IVPUSH Q8H PRN Nausea and Vomiting Oxycodone HCl 10 mg 07/17/20 21:00 07/20/20 09:08 Oxycodone Hcl Er 10 Mg Tab.Er.12h PO 10 mg BID NAYELI Administration Oxycodone HCl 10 mg 07/17/20 12:03 07/18/20 07:43 Oxycodone Hcl Immed Release 5 Mg Tablet PO 10 mg Q6H PRN Administration Pain, Moderate (Pain Scale 4-6 Sodium Chloride 3 ml 07/17/20 00:00 07/20/20 09:09 0.9 % Sodium Chloride Flush 3 Ml Syringe IVFLUSH 3 ml QSHIFT NAYELI Administration Time Spent With Patient Time: Total time spent is greater than 50% in coordination of care (as documented) at patient's floor/unit and/or counseling patient: Time with patient: less than 15 minutes
--- NOTE | 2020-07-20 10:23 | HO.PM.IMPN ---
Subjective Subjective Date of Service: 07/20/20 Interval History: seen and examined this AM agreeable on STR pain improved doing better overall ROS General - no fevers or chills Cardiovascular - no chest pain Respiratory - no shortness of breath or cough Abdominal- no abdominal pain, nausea, vomiting, diarrhea Physical Exam Vital Signs: Vital Signs: Last Vital Signs Temp 97.8 F 07/20/20 07:36 Pulse 70 07/20/20 07:36 Resp 16 07/20/20 07:36 BP 143/66 H 07/20/20 07:36 Pulse Ox 91 L 07/20/20 07:36 Body Mass Index 23.6 Const: General: cooperative and no acute distress Orientation/consciousness: patient oriented x3 Eyes: General: appearance normal, both eyes and all related structures Resp: Effort & Inspection: normal respiratory effort and able to speak in complete sentences Cardio: Rate: regular rate Rhythm: regular rhythm GI: Palpation (GI): Soft to palpation Auscultation: normal bowel sounds Skin: General skin exam: no rashes or lesions noted Neuro: General: patient oriented x3 Cognition (Neuro): normal cognition Objective Data Current Medications Generic Name Dose Route Start Last Admin Trade Name Freq PRN Reason Stop Dose Admin Acetaminophen 650 mg 07/16/20 21:51 Acetaminophen 325 Mg Tablet PO Q6H PRN Pain, Mild (Pain Scale 1-3) Docusate Sodium 100 mg 07/16/20 21:51 Docusate Sodium 100 Mg Capsule PO DAILY PRN Constipation Enoxaparin Sodium 40 mg 07/18/20 08:00 07/20/20 09:08 Enoxaparin Sodium 40 Mg/0.4 Ml Syringe SUBCUT 40 mg Q24H NAYELI Administration Hydromorphone HCl 0.25 mg 07/17/20 12:03 07/18/20 04:18 Hydromorphone Hcl 0.5 Mg/0.5 Ml Syringe IVPUSH 0.25 mg Q4H PRN Administration Pain, Severe (Pain Scale 7-10) Insulin Human Lispro 0 unit 07/17/20 07:30 07/20/20 09:09 Insulin Lispro 100 Unit/Ml 3 Ml Vial SUBCUT Not Given [facility]ACHS [facility] Protocol Ondansetron HCl 4 mg 07/16/20 21:51 Ondansetron Hcl 4 Mg/2 Ml Vial IVPUSH Q8H PRN Nausea and Vomiting Oxycodone HCl 10 mg 07/17/20 21:00 07/20/20 09:08 Oxycodone Hcl Er 10 Mg Tab.Er.12h PO 10 mg BID NAYELI Administration Oxycodone HCl 10 mg 07/17/20 12:03 07/18/20 07:43 Oxycodone Hcl Immed Release 5 Mg Tablet PO 10 mg Q6H PRN Administration Pain, Moderate (Pain Scale 4-6 Sodium Chloride 3 ml 07/17/20 00:00 07/20/20 09:09 0.9 % Sodium Chloride Flush 3 Ml Syringe IVFLUSH 3 ml QSHIFT NAYELI Administration Labs CBC & Chem 7: 07/19/20 07:35 07/18/20 06:03 Assessment and Plan (1) Fracture of distal end of femur: Status: Acute Assessment and Plan: This is a 75-year-old female who presents to the hospital after a fall found to have femoral fracture 1. Left femoral Fx s/p ORIF -- POD #3 DVT/Pain mgmt per ortho recommendations PT/OT recs STR 2. COPD no exacerbation continue home inhalers 3. Diabetes sliding scale diabetic diet 4. Leukocytosis reactive, no evidence of infection at this time Full Code DVT pptx, lovenox dispo: STR pending insurance authorization
[2020-07-20 11:21] VITALS: BP 145/66; PULSE 66; RESP 15; TEMP 36.1; O2SAT 92
[2020-07-20 11:57] LABS: Glucose, Whole Blood 151 mg/dL (60-115)
[2020-07-20 15:27] VITALS: BP 136/70; PULSE 72; RESP 15; TEMP 36.4; O2SAT 94
[2020-07-20 16:42] LABS: Glucose, Whole Blood 136 mg/dL (60-115)
[2020-07-20 19:25] VITALS: BP 136/68; PULSE 74; RESP 15; TEMP 36.7; O2SAT 94
[2020-07-20 20:58] LABS: Glucose, Whole Blood 144 mg/dL (60-115)
[2020-07-20 23:58] VITALS: BP 168/90; PULSE 70; RESP 16; TEMP 36.1; O2SAT 94
[2020-07-21] MEDS: 0.9 % Sodium Chloride Flush 3 ML SYRINGE IVFLUSH ×4 (00:51→21:17)
[2020-07-21 04:00] VITALS: BP 168/77; PULSE 75; RESP 14; TEMP 36.4; O2SAT 92
[2020-07-21 07:41] VITALS: BP 134/60; PULSE 78; RESP 19; TEMP 36.3; O2SAT 93
[2020-07-21 07:53] LABS: Glucose, Whole Blood 113 mg/dL (60-115)
[2020-07-21] MEDS: Enoxaparin Sodium 40 MG/0.4 ML SYRINGE SUBCUT (08:24)
[2020-07-21] MEDS: oxyCODONE HCl ER 10 MG TAB.ER.12H PO ×2 (08:24→21:17)
[2020-07-21 11:23] VITALS: BP 124/72; PULSE 70; RESP 19; TEMP 36.7; O2SAT 95
[2020-07-21 11:39] LABS: Glucose, Whole Blood 116 mg/dL (60-115)
--- NOTE | 2020-07-21 11:59 | HO.PM.IMPN ---
Subjective Subjective Date of Service: 07/21/20 Interval History: seen and examined this AM no new complaints doing well ROS General - no fevers or chills Cardiovascular - no chest pain Respiratory - no shortness of breath or cough Abdominal- no abdominal pain, nausea, vomiting, diarrhea Physical Exam Vital Signs: Vital Signs: Last Vital Signs Temp 98.1 F 07/21/20 11:23 Pulse 70 07/21/20 11:23 Resp 19 07/21/20 11:23 BP 124/72 07/21/20 11:23 Pulse Ox 95 07/21/20 11:23 Body Mass Index 23.6 Const: General: cooperative and no acute distress Orientation/consciousness: patient oriented x3 Eyes: General: appearance normal, both eyes and all related structures Resp: Effort & Inspection: normal respiratory effort and able to speak in complete sentences Cardio: Rate: regular rate Rhythm: regular rhythm GI: Palpation (GI): Soft to palpation Auscultation: normal bowel sounds Skin: General skin exam: no rashes or lesions noted Neuro: General: patient oriented x3 Cognition (Neuro): normal cognition Extrem: General: Yes no pedal edema Objective Data Current Medications Generic Name Dose Route Start Last Admin Trade Name Freq PRN Reason Stop Dose Admin Acetaminophen 650 mg 07/16/20 21:51 Acetaminophen 325 Mg Tablet PO Q6H PRN Pain, Mild (Pain Scale 1-3) Docusate Sodium 100 mg 07/16/20 21:51 Docusate Sodium 100 Mg Capsule PO DAILY PRN Constipation Enoxaparin Sodium 40 mg 07/18/20 08:00 07/21/20 08:24 Enoxaparin Sodium 40 Mg/0.4 Ml Syringe SUBCUT 40 mg Q24H NAYELI Administration Hydromorphone HCl 0.25 mg 07/17/20 12:03 07/18/20 04:18 Hydromorphone Hcl 0.5 Mg/0.5 Ml Syringe IVPUSH 0.25 mg Q4H PRN Administration Pain, Severe (Pain Scale 7-10) Insulin Human Lispro 0 unit 07/17/20 07:30 07/21/20 07:50 Insulin Lispro 100 Unit/Ml 3 Ml Vial SUBCUT Not Given QIDACHS [facility] Protocol Ondansetron HCl 4 mg 07/16/20 21:51 Ondansetron Hcl 4 Mg/2 Ml Vial IVPUSH Q8H PRN Nausea and Vomiting Oxycodone HCl 10 mg 07/17/20 21:00 07/21/20 08:24 Oxycodone Hcl Er 10 Mg Tab.Er.12h PO 10 mg BID NAYELI Administration Oxycodone HCl 10 mg 07/17/20 12:03 07/18/20 07:43 Oxycodone Hcl Immed Release 5 Mg Tablet PO 10 mg Q6H PRN Administration Pain, Moderate (Pain Scale 4-6 Sodium Chloride 3 ml 07/17/20 00:00 07/21/20 08:25 0.9 % Sodium Chloride Flush 3 Ml Syringe IVFLUSH 3 ml QSHIFT NAYELI Administration Labs CBC & Chem 7: 07/19/20 07:35 07/18/20 06:03 Assessment and Plan (1) Fracture of distal end of femur: Status: Acute Assessment and Plan: This is a 75-year-old female who presents to the hospital after a fall found to have femoral fracture 1. Left femoral Fx s/p ORIF -- POD #4 DVT/Pain mgmt per ortho recommendations PT/OT recs STR 2. COPD no exacerbation continue home inhalers -- med rec unclear, will need to be updated; for now will use DuoNebs as needed 3. Diabetes sliding scale diabetic diet 4. Leukocytosis reactive, no evidence of infection at this time Full Code DVT pptx, lovenox dispo: STR pending insurance authorization
[2020-07-21 15:37] VITALS: BP 137/69; PULSE 68; RESP 15; TEMP 36.6; O2SAT 92
[2020-07-21 17:02] LABS: Glucose, Whole Blood 117 mg/dL (60-115)
[2020-07-21 19:00] VITALS: BP 138/68; PULSE 77; RESP 14; TEMP 36.5; O2SAT 93
[2020-07-21 21:00] LABS: Glucose, Whole Blood 135 mg/dL (60-115)
[2020-07-21 23:40] VITALS: BP 146/66; PULSE 71; RESP 16; TEMP 37; O2SAT 93
[2020-07-22 03:53] VITALS: BP 127/68; PULSE 69; RESP 16; TEMP 36.2; O2SAT 92
[2020-07-22 07:51] VITALS: BP 130/69; PULSE 77; RESP 16; TEMP 36.2; O2SAT 91
[2020-07-22 08:23] LABS: Glucose, Whole Blood 125 mg/dL (60-115)
--- NOTE | 2020-07-22 08:48 | P.PNIM_ITS ---
Subjective Subjective Date of Service: 07/22/20 Interval History: seen and examined this AM no complains tells me her leg pain is improving ROS General - no fevers or chills Cardiovascular - no chest pain Respiratory - no shortness of breath or cough Abdominal- no abdominal pain, nausea, vomiting, diarrhea Physical Exam Vital Signs: Vital Signs: Last Vital Signs Temp 97.2 F 07/22/20 07:51 Pulse 77 07/22/20 07:51 Resp 16 07/22/20 07:51 BP 130/69 07/22/20 07:51 Pulse Ox 91 L 07/22/20 07:51 Body Mass Index 23.6 Const: General: cooperative and no acute distress Orientation/consciousness: patient oriented x3 Eyes: General: appearance normal, both eyes and all related structures Resp: Effort & Inspection: normal respiratory effort and able to speak in complete sentences Cardio: Rate: regular rate Rhythm: regular rhythm GI: Palpation (GI): Soft to palpation Auscultation: normal bowel sounds Skin: General skin exam: no rashes or lesions noted Neuro: General: patient oriented x3 Cognition (Neuro): normal cognition Objective Data Current Medications Generic Name Dose Route Start Last Admin Trade Name Freq PRN Reason Stop Dose Admin Acetaminophen 650 mg 07/16/20 21:51 Acetaminophen 325 Mg Tablet PO Q6H PRN Pain, Mild (Pain Scale 1-3) Albuterol/Ipratropium 3 ml 07/21/20 12:00 Albuterol/Iprat 2.5/0.5mg 3 Ml Ampul.Neb INHALE RQ4H PRN Shortness of Breath/Wheezing Docusate Sodium 100 mg 07/16/20 21:51 Docusate Sodium 100 Mg Capsule PO DAILY PRN Constipation Enoxaparin Sodium 40 mg 07/18/20 08:00 07/21/20 08:24 Enoxaparin Sodium 40 Mg/0.4 Ml Syringe SUBCUT 40 mg Q24H NAYELI Administration Hydromorphone HCl 0.25 mg 07/17/20 12:03 07/18/20 04:18 Hydromorphone Hcl 0.5 Mg/0.5 Ml Syringe IVPUSH 0.25 mg Q4H PRN Administration Pain, Severe (Pain Scale 7-10) Insulin Human Lispro 0 unit 07/17/20 07:30 07/21/20 21:16 Insulin Lispro 100 Unit/Ml 3 Ml Vial SUBCUT Not Given QIDACHS [facility] Protocol Ondansetron HCl 4 mg 07/16/20 21:51 Ondansetron Hcl 4 Mg/2 Ml Vial IVPUSH Q8H PRN Nausea and Vomiting Oxycodone HCl 10 mg 07/17/20 21:00 07/21/20 21:17 Oxycodone Hcl Er 10 Mg Tab.Er.12h PO 10 mg BID NAYELI Administration Oxycodone HCl 10 mg 07/17/20 12:03 07/18/20 07:43 Oxycodone Hcl Immed Release 5 Mg Tablet PO 10 mg Q6H PRN Administration Pain, Moderate (Pain Scale 4-6 Sodium Chloride 3 ml 07/17/20 00:00 07/21/20 21:17 0.9 % Sodium Chloride Flush 3 Ml Syringe IVFLUSH 3 ml QSHIFT NAYELI Administration Labs CBC & Chem 7: 07/19/20 07:35 07/18/20 06:03 Assessment and Plan (1) Fracture of distal end of femur: Status: Acute Assessment and Plan: This is a 75-year-old female who presents to the hospital after a fall found to have femoral fracture 1. Left femoral Fx s/p ORIF -- POD #5 DVT/Pain mgmt per ortho recommendations PT/OT recs STR 2. COPD no exacerbation continue home inhalers -- med rec unclear, will need to be updated; for now will use DuoNebs as needed 3. Diabetes sliding scale diabetic diet 4. Leukocytosis reactive, no evidence of infection at this time Full Code DVT pptx, lovenox dispo: STR pending insurance authorization
[2020-07-22] MEDS: oxyCODONE HCl ER 10 MG TAB.ER.12H PO (08:54)
[2020-07-22] MEDS: Enoxaparin Sodium 40 MG/0.4 ML SYRINGE SUBCUT (08:55)
[2020-07-22] MEDS: 0.9 % Sodium Chloride Flush 3 ML SYRINGE IVFLUSH ×2 (08:55→16:25)
[2020-07-22 11:22] VITALS: BP 122/61; PULSE 77; RESP 19; TEMP 36.4; O2SAT 92
[2020-07-22 11:32] LABS: Glucose, Whole Blood 142 mg/dL (60-115)
--- NOTE | 2020-07-22 12:10 | P.DS_ITS ---
DS: Providers Provider Date of Service: 07/22/20 Date of admission: 07/16/20 21:51 Primary care physician: Unknown Physician DS: Diagnosis Discharge Diagnosis (1) Fracture of distal end of femur: Status: Acute (2) COPD (chronic obstructive pulmonary disease): Status: Inactive (3) Diabetes mellitus: Status: Acute (4) Leukocytosis: Status: Acute DS: Medications Discharge Medications Home Medications: Home Medications Medication Instructions Recorded Confirmed albuterol sulfate [Ventolin HFA] 1 inh INHALATION QID PRN 06/24/20 06/24/20 budesonide-formoterol [Symbicort] 2 puff INHALATION BID 06/24/20 06/24/20 metformin 500 mg PO BID 06/24/20 06/26/20 Previous Rx's Medication Instructions Recorded enoxaparin [Lovenox] 40 mg SUBCUT Q24H 28 Days #11.2 ml 07/18/20 hydrocodone-acetaminophen 1 - 2 tab PO Q6H PRN #20 tab 07/22/20 DS: Summary Hospital Course Hospital Course: Patient presented after a mechanical fall and was diagnosed with a nondisplaced fracture of the distal femoral metaphysis. She was admitted under the medical service and Orthopedics were consulted. She ultimately underwent operative repair. Postoperatively she was observed in the hospital had no known complications. She will be discharged to senior living facility. She is to complete 4 weeks of Lovenox per Orthopedic recommendations. She needs to follow up with Orthopedics in 2 weeks from discharge. Time Spent with Patient Time attestation: Total time spent providing and/or coordinating discharge services: Discharge coordination time: Greater than 30 minutes Physical Exam Vital Signs: Vital Signs: Last Vital Signs Temp 97.5 F 07/22/20 11:22 Pulse 77 07/22/20 11:22 Resp 19 07/22/20 11:22 BP 122/61 07/22/20 11:22 Pulse Ox 92 07/22/20 11:22 Body Mass Index 23.6 Const: General: cooperative and no acute distress Orientation/consciousness: patient oriented x3 Eyes: General: appearance normal, both eyes and all related structures Resp: Effort & Inspection: normal respiratory effort and able to speak in complete sentences Cardio: Rate: regular rate Rhythm: regular rhythm GI: Palpation (GI): Soft to palpation Auscultation: normal bowel sounds Skin: General skin exam: no rashes or lesions noted Neuro: General: patient oriented x3 Cognition (Neuro): normal cognition Extrem: General: Yes no pedal edema DS: Data Data Completed and Pending Labs on day of discharge: Laboratory Results - last 24 hr 07/21/20 07/21/20 07/22/20 16:46 20:54 07:48 POC Glucose 117 H 135 H 125 H 07/22/20 11:19 POC Glucose 142 H Discharge Plan Discharge Patient Disposition: Xfer SNF Referrals: [facility] [Outside] Miko Laguna MD [Physician] - Shi Conte PA-C [Physician [employer] Super[employer]] - (2 week f/u with orthopedics ) Bibi Zhang MD [Physician] - (SNF- Nurse will follow up) Discharge Medications: New enoxaparin [Lovenox] 40 mg/0.4 mL syringe 40 mg subcut Q24H 28 Days Qty: 11.2 RF: 0 Continued metformin 500 mg tablet 500 mg PO BID RF: 0 albuterol sulfate [Ventolin HFA] 90 mcg/actuation Hfa Aerosol Inhaler 1 inh INHALATION QID PRN (Reason: Shortness Of Breath) RF: 0 budesonide-formoterol [Symbicort] 160-4.5 mcg/actuation HFA aerosol inhaler 2 puff inhalation BID RF: 0 hydrocodone-acetaminophen 5-325 mg tablet 1 - 2 tab PO Q6H PRN (Reason: pain) Qty: 20 RF: 0 Discontinued amoxicillin 500 mg Capsule 500 mg PO Q8H Qty: 6 RF: 0 prednisone 20 mg Tablet 40 mg PO DAILY Qty: 6 RF: 0 Discharge Orders: Discharge Order (Routine); Ordered 07/22/20 Ordered By: Niko Solomon Diet: advance to usual diet Activity on Discharge: Use cane or walker Stand Alone Forms: Patient Portal Discharge page Care Plan Goals: Restore fxn of the left knee Health Concerns: Femoral Fracture Plan of Treatment: Gait training, strengthening, ADLs NWB, okay for TTWB for transfers Continue Lovenox for dvt ppx x4 weeks Keep dressing clean, dry and intact-no showering or tub baths Follow up with Orthopedics in 2 weeks
[2020-07-22 12:55] LABS: COVID-19 Test Negative (Negative)
[2020-07-22 15:42] VITALS: BP 136/65; PULSE 66; RESP 14; TEMP 36.4; O2SAT 94
[2020-07-22 16:28] LABS: Glucose, Whole Blood 121 mg/dL (60-115)
== END 2020-07-22 17:05 | disposition skilled nursing facility (03) | DRG 482 ==
LOC: HO.ED 20:02 → HO.EDOVER 22:13 → HO.S3 23:34
PROVIDERS: Orthopaedic Surgery; Physician Assistant; Admitting Provider Internal Medicine; Emergency Provider Emergency Medicine Emergency Medical Services; PCP Internal Medicine; Visit Provider Family Medicine
PROC: 0QSC04Z Reposition Left Lower Femur with Internal Fixation Device, Open Approach (ICD-10-PCS; principal; 2020-07-17 13:20)
DX: S72.402A Unspecified fracture of lower end of left femur, initial encounter for closed fracture (principal); W01.0XXA Fall on same level from slipping, tripping and stumbling without subsequent striking against object, initial encounter; Y93.9 Activity, unspecified; Y92.009 Unspecified place in unspecified non-institutional (private) residence as the place of occurrence of the external cause; E11.9 Type 2 diabetes mellitus without complications; D72.829 Elevated white blood cell count, unspecified; J44.9 Chronic obstructive pulmonary disease, unspecified; Y99.9 Unspecified external cause status; F17.210 Nicotine dependence, cigarettes, uncomplicated; Z71.6 Tobacco abuse counseling; Z79.84 Long term (current) use of oral hypoglycemic drugs; Z20.822 Contact with and (suspected) exposure to COVID-19; Z79.899 Other long term (current) drug therapy
CPT/HCPCS: 36415; 73564; 73700; 80048; 82947; 84484; 85014; 85018; 85025; 85027; 86850; 86900; 86901; 87635; 93005; 97110; 97162; 97166; 97530; 97535; 99285; C1713; C1769; J0131; J0690; J1100; J1170; J1650; J2270; J2370; J2405; J3010

== ENCOUNTER 2020-08-01 10:55 | Outpatient (REF) | payer MEDICARE, SELFPAY ==
--- NOTE | ~2020-08-01 | XR_ITS ---
EXAMINATION: XR WRIST, LEFT CLINICAL INFORMATION: Fracture follow-up COMPARISON: Radiographs left wrist 07/11/2020, 06/24/2020 TECHNIQUE: Left wrist is imaged in 3 views. FINDINGS: Distal radial fracture is reduced with volar side plate and screws. The hardware is intact. Fracture fragments are in near-anatomic alignment. The ulnar variance is neutral. There is a mildly distracted fracture tip ulnar styloid again seen. Generalized osteopenia again present and degenerative changes interphalangeal joints. XR/XR wrist LT min 3V IMPRESSION: 1. Status post reduction distal radial fracture. Hardware intact. Near-anatomic alignment. 2. Ulnar styloid tip fracture stable.
--- NOTE | ~2020-08-01 | XR_ITS ---
EXAMINATION: XR KNEE, LEFT CLINICAL INFORMATION: Nondisplaced intra-articular fracture distal femur. Follow-up. COMPARISON: Radiographs left knee 07/16/2020, CT left knee 07/16/2020 TECHNIQUE: AP and lateral views of the left knee are obtained. FINDINGS: Hairline intra-articular fracture vertically oriented distal femur is fixed with 2 horizontally oriented screws. Hardware is intact. Fracture in anatomic alignment. There are skin jude overlying the lateral knee. Suprapatellar effusion is slightly decreased. XR/XR knee LT 2V IMPRESSION: Status post reduction. Hardware intact.
== END 2020-08-01 10:56 | disposition home or self-care (01) ==
LOC: HO.HOSX 10:55
PROVIDERS: Visit Provider Physician Assistant
DX: S72.409A Unspecified fracture of lower end of unspecified femur, initial encounter for closed fracture (principal); S52.502A Unspecified fracture of the lower end of left radius, initial encounter for closed fracture; X58.XXXA Exposure to other specified factors, initial encounter; Y93.9 Activity, unspecified; Y99.8 Other external cause status; Y92.9 Unspecified place or not applicable; J96.21 Acute and chronic respiratory failure with hypoxia; J44.9 Chronic obstructive pulmonary disease, unspecified; E11.9 Type 2 diabetes mellitus without complications; F17.210 Nicotine dependence, cigarettes, uncomplicated
CPT/HCPCS: 73110; 73560; 99212

== ENCOUNTER 2020-08-15 07:22 | Outpatient (REF) | payer MEDICARE, SELFPAY ==
--- NOTE | ~2020-08-15 | XR_ITS ---
EXAMINATION: XR KNEE, LEFT CLINICAL INFORMATION: Fracture of the lower end of the femur COMPARISON: 08/01/2020 TECHNIQUE: Two views of the left knee. FINDINGS: There are [address] transfixing the distal femur. Hardware is intact. The fracture line of the distal femoral intercondylar notch is less visible, suggestive of interval healing. Compartmental joint spaces are maintained. Small suprapatellar joint effusion is similar to previous. Diffuse vascular calcifications. XR/XR knee LT 2V IMPRESSION: Intact fixation hardware transfixing the distal femoral fracture with appropriate alignment. Evidence of healing.
== END 2020-08-15 07:23 | disposition home or self-care (01) ==
LOC: HO.HOSX 07:22
PROVIDERS: Visit Provider Physician Assistant
DX: S72.409D Unspecified fracture of lower end of unspecified femur, subsequent encounter for closed fracture with routine healing (principal); F17.200 Nicotine dependence, unspecified, uncomplicated; Z47.89 Encounter for other orthopedic aftercare; X58.XXXD Exposure to other specified factors, subsequent encounter
CPT/HCPCS: 73560; 99212

== ENCOUNTER 2020-09-02 09:46 | Outpatient (REF) | payer MEDICARE, SELFPAY ==
--- NOTE | ~2020-09-02 | XR_ITS ---
EXAMINATION: XR KNEE, LEFT CLINICAL INFORMATION: Left knee pain. COMPARISON: 08/15/2020 and studies dating back to 07/16/2020. TECHNIQUE: AP and lateral views of the left knee. FINDINGS: Two screws are again seen between the femoral condyles. The fracture line within the distal femur is not well identified consistent with progression in healing. Hardware appears intact. Joint spaces are maintained. There is a minimal left knee effusion. There are prominent vascular calcifications. XR/XR knee LT 2V IMPRESSION: Stable appearance of the left knee with hardware intact status post distal femoral intercondylar fracture.
== END 2020-09-02 09:47 | disposition home or self-care (01) ==
LOC: HO.HOSX 09:46
PROVIDERS: Visit Provider Physician Assistant
DX: S72.402D Unspecified fracture of lower end of left femur, subsequent encounter for closed fracture with routine healing (principal); M25.562 Pain in left knee
CPT/HCPCS: 73560; 99212

== ENCOUNTER 2020-10-07 11:54 | Outpatient (REF) | payer MEDICARE, SELFPAY ==
--- NOTE | ~2020-10-07 | XR_ITS ---
EXAMINATION: XR KNEE, LEFT CLINICAL INFORMATION: Pain previous x-ray most recent August 2020 COMPARISON: Previous x-rays most recent August 2020 TECHNIQUE: 2 views of the left knee. FINDINGS: The bones are osteopenic. There are 2 transverse screws in the distal femur. Femoral fracture line is not appreciated. The joint spaces are normal. There is no joint effusion. There is evidence of atherosclerotic disease. XR/XR knee LT 2V IMPRESSION: ORIF of left femoral fracture. Fracture line no longer seen. Osteopenia.
== END 2020-10-07 11:55 | disposition home or self-care (01) ==
LOC: HO.HOSX 11:54
PROVIDERS: Visit Provider Physician Assistant
DX: S72.402D Unspecified fracture of lower end of left femur, subsequent encounter for closed fracture with routine healing (principal)
CPT/HCPCS: 73560; 99212